=== PATIENT | female | born 1995 | race Caucasian/White ===

== ENCOUNTER 2025-01-24 06:46 | Outpatient (CLI) | payer OTHER, BC, SELFPAY ==
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
--- OUTSIDE RECORDS SUMMARY | 2025-01-24 06:54 | XMS_ITS | Encounter Summary ---
Author Organization [facility] Address [address] [place] [address] Care Team Providers Care Floor Worker Well Service Name Role Phone Diane Barry CHAIR MECHANIC- Unavailable Kaiden Motta MD Primary Care Provider [phone] Sadie Monroe NURSING AGENCY MANAGER Unavailable [phone] Encounter Details Date Type Department Care Team (Late st Contact Info) Description 02/16/2024 New Vision [place] [address] Mariano Freeman MD [address] [place] [address] Visit Follow Up Social History Tobacco Use Types Packs/Day Years Used Date Smoking Tobacco: Never Smokeless Tobacco: Never Alcohol Use Standard Drinks/Week Comments No 0 (1 standard drink = 0.6 oz pur e alcohol) Humiliation, Afraid, Rape, and Kick questionnair e Answer Date Recorded Within the last year, have y ou been afraid of your partner or ex-partner? No 11/27/2022 Within the last year, have y ou been humiliated or emotionally abused in other ways by your partner or ex-partner? No Within the last year, have y ou been kicked, hit, slapped, or otherwise physically hurt by your partner or ex-partner? No 11/27/2022 Within the last year, have y ou been raped or forced to have any kind of sexual activity by your partner or ex-partner? No 11/27/2022 Social Connection and Isolat ion Panel [NHANES] Answer Date Recorded In a typical week, how many times do you talk on the phone with family, friends, or neighbors? More than three times a week 11/27/2022 How often do you get togethe r with friends or relatives? Twice a week 11/27/2022 How often do you attend chur ch or orthodoxy services? More than 4 times per year 11/27/2022 Do you belong to any clubs o r organizations such as anglican groups, unions, fraternal or athletic groups, or school groups? No 11/27/2022 How often do you attend meet ings of the clubs or organizations you belong to? Never 11/27/2022 Are you , , di vorced, , never , or living with a partner? 11/27/2022 AUDIT-C Answer Date Recorded Q1: How often do you have a drink containing alc ohol? Never 11/27/2022 Q2: How many drinks containi ng alcohol do you have on a typical day when you are drinking? Patient declined 11/27/2022 Q3: How often do you have si x or more drinks on one occasion? Never 11/27/2022 Overall Financial Resource Strain (CARDIA) Answe r Date Recorded How hard is it for you to pa y for the very basics like food, housing, medical care, and heating? Not hard at all 11/27/2022 [facility] [place] [facility] Occupat ional Health - Occupational Stress Questionnaire Answer Date Recorded Do you feel stress - tense, restless, nervous, or anxious, or unable to sleep at night because your mind is troubled all the time - these days? Rather much 11/27/2022 Exercise Vital Sign Answer Date Recorde d On average, how many days pe r week do you engage in moderate to strenuous exercise (like a brisk walk)? 4 days 11/27/2022 On average, how many minutes do you engage in exercise at this level? 30 min 11/27/2022 Hunger Vital Sign Answer Date Recorded Within the past 12 months, y ou worried that your food would run out before you got the money to buy more. Never true 11/27/19 23 Within the past 12 months, t he food you bought just didn't last and you didn't have money to get more. Never true 11/27/2022 PRAPARE - Transportation Answer Date Re corded In the past 12 months, has l ack of transportation kept you from medical appointments or from getting medications? No 11/18 In the past 12 months, has l ack of transportation kept you from meetings, work, or from getting things needed for daily living? No 11/27/2022 Housing Stability Vital Sign Answer Fer e Recorded In the last 12 months, was t here a time when you were not able to pay the mortgage or rent on time? No 11/27/2022 In the last 12 months, how many places have you lived? 2 11/27/2022 In the last 12 months, was t here a time when you did not have a steady place to sleep or slept in a fci (including now)? No 11/27/2022 Comments No Sex and Gender Information Value Date Recorded Sex Assigned at Not on file Legal Sex Female 8:21 PM CDT Gender Identity Not on file Sexual Orientation Not on file documented as of this encounter Functional Status * RETIRED Are you deaf or do you have serious difficulty hearing Answer Date of Assessment Author Status No 11/27/2022 1:08 AM ORGANIZATIONAL DEVELOPMENT MANAGER Activ e * RETIRED Are you blind or do you have serious difficulty seeing, even when wearing glasses? Answer Date of Assessment Author Status No 11/27/2022 1:08 AM ORGANIZATIONAL DEVELOPMENT MANAGER Activ e * Do you have serious difficulty walking or climbing stairs? Answer Date of Assessment Author Status No 11/27/2022 1:08 AM ORGANIZATIONAL DEVELOPMENT MANAGER Nat Finnegan R N Active * Do you have difficulty dressing or bathing? Answer Date of Assessment Author Status No 11/27/2022 1:08 AM ORGANIZATIONAL DEVELOPMENT MANAGER Nat Finnegan R N Active * Because of a physical, mental, or emotional condition, do you have difficulty doing errands alone such as visiting a doctor's office or shopping? Answer Date of Assessment Author Status No 11/27/2022 1:08 AM ORGANIZATIONAL DEVELOPMENT MANAGER Nat Finnegan R N Active documented as of this encounter Mental Status * Because of a physical, mental, or emotional condition, do you have serious difficulty concentrating, remembering, or making decisions? Answer Entry Date Author Status No 11/27/2022 1:08 AM ORGANIZATIONAL DEVELOPMENT MANAGER Kain, Nat N, R N Active documented in this encounter Plan of Treatment Not on file documented as of this encounter Visit Diagnoses Not on filedocumented in this encounter Care Teams Floor Worker Well Service Relationship Specialty Start Date End Date Kaiden Motta MD [address] [place] [phone] PCP - General FAMILY PRACTICE 11/28/19 Diane Barry [facility] [place]ana Filling Operator CARDIOVASCULAR DISEASE 02/06/19 Sadie Monroe NP [address] [place] [address] Nurse Practitioner Nurse Practitioner Women's Health 02/06/21 documented as of this encounter
--- OUTSIDE RECORDS SUMMARY | 2025-01-24 06:54 | XMS_ITS | Referral Summary ---
Author Organization [facility] Address [address] [place] [phone] Care Team Providers Care Drop Forge Operator Name Role Phone Sadie Monroe NP Primary Care Provider [phone] Encounters Date Type Department Care Team Description 01/18/2025 Telephone [facility] [address] [place] [address] Kyle Perez MD Home sleep study results 01/16/2025 9:00 AM CDT - 01/16/2025 11:59 PM CDT Hospital Encounter [facility] [address] [place] [address] Snoring Discharge Disposition: Discharge to home or self care 11/23/2024 Telephone [facility] [address] [place] [address] Sadie Garay [place]STR[place] Insurance 11/06/2024 Telephone [facility] [address] [place] [address] Sadie Garay RPSTRENTON In lab sleep study denied by insurance from Last 3 Months Allergies No known active allergies Medications lamoTRIgine (LaMICtal) 100 mg tablet Take 120 mg by mouth daily Active buPROPion (WELLBUTRIN) 100 mg tabletIndication s:Anxiety with Depression Take 100 mg by mouth once Active aspirin 81 mg enteric coated tablet Take 162 mg by mouth daily Active vit 89-[id number]-fayiw-dh a 27mg iron- 800 mcg-250 mg capsule Take by mouth Active Active Problems Problem Noted Date Diagnosed Date Snoring 10/17/2024 Assessment & Plan (10/17/2024 8:21 AM PLANER TAILER): The patient presents with snoring and daytime fatigue and witnessed nocturnal gasping episodes. I have recommended proceeding with a nocturnal polysomnogram with a split night protocol if necessary and no MSLT. She will follow up here in 4 months. Social History Tobacco Use Types Packs/Day Years Used Date Smoking Tobacco: Never Tobacco Cessation:Counseling Given: Not Answered Social Connection and Isolat ion Panel [NHANES] Answer Date Recorded In a typical week, how many times do you talk on the phone with family, friends, or neighbors? More than three times a week 11/15/2022 How often do you get togethe r with friends or relatives? More than three times a week 11/15/2022 Attends Voodoo Services Not on file 11/15 Active Member of Clubs or Organizations Not on f ile 11/15/2022 Attends Club or Organization Meetings Not on ariana e 11/15/2022 Are you , , di vorced, , never , or living with a partner? 11/15/2022 AUDIT-C Answer Date Recorded Q1: How often do you have a drink containing alc ohol? Never 11/15/2022 Average Number of Drinks Not on file 023 Frequency of Binge Drinking Not on file 10/19 Overall Financial Resource Strain (CARDIA) Answe r Date Recorded How hard is it for you to pa y for the very basics like food, housing, medical care, and heating? Somewhat hard 11/15/2022 PHQ-2 Answer Date Recorded PHQ-2 Total Score (If total score is 3 or more points, staff should administer the PHQ-9) 5 11/15/2022 [facility] - Occupational Stress Questionnaire Answer Date Recorded Do you feel stress - tense, restless, nervous, or anxious, or unable to sleep at night because your mind is troubled all the time - these days? Very much 11/15/2022 Exercise Vital Sign Answer Date Recorde d On average, how many days pe r week do you engage in moderate to strenuous exercise (like a brisk walk)? 0 days 11/15/2022 On average, how many minutes do you engage in exercise at this level? 0 min 11/15/2022 Hunger Vital Sign Answer Date Recorded Within the past 12 months, y ou worried that your food would run out before you got the money to buy more. Never true 11/15/19 23 Within the past 12 months, t he food you bought just didn't last and you didn't have money to get more. Never true 11/15/2022 PRAPARE - Transportation Answer Date Re corded In the past 12 months, has l ack of transportation kept you from medical appointments or from getting medications? No 10/19 In the past 12 months, has l ack of transportation kept you from meetings, work, or from getting things needed for daily living? No 11/15/2022 Housing Stability Vital Sign Answer Fer e Recorded In the last 12 months, was t here a time when you were not able to pay the mortgage or rent on time? No 11/15/2022 Number of Places Lived in the Last Year Not on f ile 11/15/2022 In the last 12 months, was t here a time when you did not have a steady place to sleep or slept in a intermediate (including now)? No 11/15/2022 Personal Safety Answer Date Recorded Getting School Help Needed Denies 10/16 Comments Unknown Sex and Gender Information Value Date Recorded Sex Assigned at Not on file Legal Sex Female 11:52 AM CDT Gender Identity Not on file Sexual Orientation Not on file Last Filed Vital Signs Vital Sign Reading Time Taken Comments Blood Pressure 118/70 10/17/2024 7:54 AM PLANER TAILER Pulse 110 10/17/2024 7:54 AM PLANER TAILER Temperature 36.4 C (97.6 F) 10/17/2024 7:54 AM PLANER TAILER Respiratory Rate 16 10/17/2024 7:54 AM PLANER TAILER Oxygen Saturation 98% 10/17/2024 7:54 AM PLANER TAILER Inhaled Oxygen Concentration - - Weight 97.1 kg (214 lb) 10/17/2024 7:54 AM PLANER TAILER Height 162.6 cm (5' 4 ) 10/17/2024 7:54 AM PLANER TAILER Body Mass Index 36.73 10/17/2024 7:54 AM PLANER TAILER Plan of Treatment Not on file Procedures Procedure Name Priority Date/Time Associated Diagnosis Comments PORTABLE/HOME SLEEP STUDY Routine 01/16/2025 9:03 AM CDT Snoring from Last 3 Months Results * Portable/Home Sleep Study (01/16/2025 9:03 AM CDT) us Jerica De La Cruz [facility] ORDERABLES [facility] Result [facility] [address] [place] [address], [facility] from Last 3 Months Insurance [facility] [employer] P[employer] PPO [facility] CHOICE PLUS [facility] Care Teams Drop Forge Operator Relationship Specialty Start Date End Date Sadie Monroe NP [address] [place] [address] [place] [address] PCP - General 04/20/22
--- OUTSIDE RECORDS SUMMARY | 2025-01-24 06:54 | XMS_ITS | Data Portability ---
Author Organization [facility], [address] [facility] ([place]) Address [address] 4th [place] [address] Care Team Providers Care Ship Rigger Apprentice Name Role Phone LADARIUS BARNARD Primary Care Provider Assessment Encounter Date Assessment Date Assessment LastModified by Organization Details LastModified Time 04/25/2024 04/25/2024 HISTORY OF PRESENT ILLNESS This is a 28-year-old female who presents to the clinic secondary to complaints of left-sided hip pain. This started during a half marathon. She noticed she was turning around multiple times looking for her boyfriend as she was running and this may have caused issue. She did not really feel a pop or anything at the time, but had some discomfort into the left hip. She was able to continue and did complete her run. She had seen an outside facility with continue pain into the left hip and a magnetic resonance arthrogram was obtained and will be independently reviewed at today s visit. This occurred in January of this year. She took about a month off from running completely. The pain really has not subsided. She feels pain into the left groin. No change in bowel or bladder. No saddle paresthesias. No previous injury here. PHYSICAL EXAMINATION CONST:-No acute distress. EYES:-No icterus. ENT:-Oral mucosa pink and moist. RESP:-Breathing appears normal. No use of accessory muscles. MSK:-Head: Atraumatic. Normocephalic. There is mildly positive log roll test, left side. There is also some discomfort on MARCE s maneuver. FADIR testing is mildly positive. There are no overlying skin changes, erythema, or ecchymosis. There is no pain over the distribution of the greater trochanter. No radicular component with straight leg raise test. Good strength on plantarflexion at the ankle. Good hip flexor strength. Compression into the distribution of the hip joint stressing the labrum did not reproduce any pain or discomfort. SKIN:-No jaundice. PSYCH:-Stable mood and affect. NEURO:-No speech difficulty. Reviewed pertinent diagnostic tests, lab work, and imaging. These were reviewed with the patient. ASSESSMENT AND PLAN I did independently review the magnetic resonance arthrogram in the room with the patient today. While there are findings consistent with inflammation, there are no findings of stress reaction into the femoral head or neck. There is no labral tear appreciated. Recommendation at this time is oral steroidal anti-inflammatory medication to see if we can clear up some of the inflammation that is appreciated into the left hip with plan on reevaluation in a couple of weeks. I asked her to hold off on activities that may increase her pain, including running, until we see her back. There might be a role for some direct formal therapy and even potential for a fluoroscopically guided hip joint injection, it depends on how she responds overall to this conservative approach. The patient is clear with the plan moving forward. ab [email or web address] Not available 04/25/2024 11:41:46 05/10/2024 05/10/2024 HISTORY OF PRESENT ILLNESS: Return visit for this 28-year-old female who initially presented to the clinic secondary to left-sided hip pain that started during a half marathon. The patient did have some advanced imaging with magnetic resonance. I reviewed those findings in the room today with the patient. There is no labral pathology appreciated. No findings consistent with a stress reaction into the femoral neck or head. There were some findings consistent with synovitis into the hip joint on my independent review. The patient did great on an oral steroidal anti-inflammatory medication and activity modification. She is anxious to get back into running. She runs usually every day of the week; shortest run being about 2 to 2-1/2 miles. PHYSICAL EXAMINATION: CONST:-No acute distress. EYES:-No icterus. ENT:-Oral mucosa pink and moist. RESP:-Breathing appears normal. No use of accessory muscles. MSK:-Head: Atraumatic. Normocephalic. There is a negative log-roll test bilaterally. FADIR test is negative bilaterally. MARCE s test is negative bilaterally. There is no radicular component on straight leg raise test. Good strength on resisted plantar flexion. Good strength on resisted hip flexion and extension. There is no pain over the distribution of the greater trochanter. Good mobility and strength of the hips bilaterally. SKIN:-No jaundice. PSYCH:-Stable mood and affect. NEURO:-No speech difficulty. Reviewed pertinent diagnostic tests, lab work, and imaging. These were reviewed with the patient. ASSESSMENT AND PLAN: Recommendation is easing back into activity; recommend spacing out some runs, some short runs in the beginning to see how she feels and responds. I anticipate good response here. The majority of inflammation is under control secondary to the steroidal medication. I encourage a phone call with any questions or concerns that may arise. She is clear with the transition back into running. She is going to call us with any questions or concerns that may arise. I personally spent a total of 26 minutes on the patient on this date of service including both [id number] and mwm-pbam-[id number]-face time excluding any separately reportable services. Not available 05/11/2024 08:32:52 10/08/2024 10/08/2024 Test(s) ordered and reviewed: UA and urine culture Prescription (s): Cephalexin Diagnosis today is UTI. The patient is given the above medication to take as instructed. They should increased their water intake while symptomatic. They may take pyridium/AZO as needed. They will be notified in 2 days if their abx needs to be switched due to resistance. For any new or worsening symptoms they may return to Urgent Care, otherwise they should f/u with their PCP as needed. Patient verbalized understanding and had no further questions. Wet prep performed here came back A few WBCs and no clue cells. [email or web address] Not available 10/09/2024 14:02:52 Plan of Treatment Reminders Order Date Submit Date Provider Last Modified By Organization Details Last Modified Time Details Appointments None recorded. Lab wet mount, vaginal 2023 [facility], [address] [place] [address], [id number], 14:44:20 urinalysis, complete 2023 [facility], [address] [place] [address], [id number], 15:09:13 Referral None recorded. Procedures None recorded. Surgeries None recorded. Imaging None recorded. Medication Orders cephalexin 500 mg capsule 2023 024 [email or web address] [id number], [address] [place], [address], 14:00:42 prednisone 10 mg tablet 2023 024 [email or web address] [id number], [address], [place], [id number], 12:53:41 Patient TargetsNo targets recorded. Patient InstructionsNo instructions recorded. Reason for Referral None Reported. Results Created Date Observation Date Name Description Value Unit Range Abnormal Flag Note LastModifiedBy Organization Detail LastModifiedTime 10/08/20 24 10/08/2024 wet mount , vagin al wet prep Not Available [facility] [address] [place] [address], [id number], 10/08/2024 14:44:20 10/08/20 24 10/08/2024 wet mount , vagin al yeast NONE SEEN none seen Not Available [facility] [address] [place] [address], [id number], 10/08/2024 14:44:20 10/08/20 24 10/08/2024 wet mount , vagin al WBC FEW none seen abnormal Not Available [facility] [address] [place] [address], [id number], 10/08/2024 14:44:20 10/08/20 24 10/08/2024 wet mount , vagin al clue cells NONE SEEN negati ve abnormal Clue Cell Inter preta tion: Posit leighann Resul t = >20% Clue Cells Seen Negat leighann Resul t = <20% Clue Cells Seen Not Available [facility] [address] [place] [address], [id number], 10/08/2024 14:44:20 10/08/20 24 10/08/2024 wet mount bere trichomonas NONE SEEN none seen Not Available [facility] [address] [place] [address], [id number], 10/08/2024 14:44:20 10/08/20 24 10/08/2024 wet mount bere source VAG Not Available [facility] [address] [place] [address], [id number], 10/08/2024 14:44:20 10/08/20 24 10/08/2024 urina lysis , compl ete manual urinalysis pH value s of 5 or 9 indic ates a value <=5 or >=9. Speci fic gravi ty value of 1.005 indic ates a value of <=1.0 05 Speci fic gravi ty value of 1.030 indic ates a value of >=1.0 30 LOW LEVEL S OF HEMOG LOBIN IN ABSEN CE OF HEMAT URIA MAY NOT BE CLINI AMANDA SIGNI FICAN T. Not Available [facility] [address] [place] [address], [id number], 10/08/2024 15:09:13 10/08/20 24 10/08/2024 urina lysis , compl ete color YELLO Not Available [facility] [address] [place] [address], [id number], 10/08/2024 15:09:13 10/08/20 24 10/08/2024 urina lysis , compl ete appearance SLCLD Not Available [facility] [address] [place] [address], [id number], 10/08/2024 15:09:13 10/08/20 24 10/08/2024 urina lysis , compl ete sp gravity 1.020 1.005- 1.030 Not Available [facility] [address] [place] [address], [id number], 10/08/2024 15:09:13 10/08/20 24 10/08/2024 urina lysis , compl ete pH 6.0 5.0-7. 5 Not Available [facility] [address] [place] [address], [id number], 10/08/2024 15:09:13 10/08/20 24 10/08/2024 urina lysis , compl ete protein NEG negati ve Not Available [facility] [address] [place] [address], [id number], 10/08/2024 15:09:13 10/08/20 24 10/08/2024 urina lysis , compl ete glucose NEG negati ve Not Available [facility] [address] [place] [address], [id number], 10/08/2024 15:09:13 10/08/20 24 10/08/2024 urina lysis , compl ete ketone NEG negati ve Not Available [facility] [address] [place] [address], [id number], 10/08/2024 15:09:13 10/08/20 24 10/08/2024 urina lysis , compl ete bilirub NEG negati ve Not Available [facility] [address] [place] [address], [id number], 10/08/2024 15:09:13 10/08/20 24 10/08/2024 urina lysis , compl ete blood NEG negati ve Not Available [facility] [address] [place] [address], [id number], 10/08/2024 15:09:13 10/08/20 24 10/08/2024 urina lysis , compl ete urobil 0.2 <=1.0 Not Available [facility] [address] [place] [address], [id number], 10/08/2024 15:09:13 10/08/20 24 10/08/2024 urina lysis , compl ete nitrite NEG negati ve Not Available [facility] [address] [place] [address], [id number], 10/08/2024 15:09:13 10/08/20 24 10/08/2024 urina lysis , compl ete leuk 1+ negati ve abnormal Not Available [facility] [address] [place] [address], [id number], 10/08/2024 15:09:13 10/08/20 24 10/08/2024 urina lysis , compl ete WBC 3-5 (0-5)/ hpf Not Available [facility] [address] [place] [address], [id number], 10/08/2024 15:09:13 10/08/20 24 10/08/2024 urina lysis , compl ete RBC 0-2 (0-2)/ hpf Not Available [facility] [address] [place] [address], [id number], 10/08/2024 15:09:13 10/08/20 24 10/08/2024 urina lysis , compl ete epith 3-5 0-10/h pf Not Available [facility] [address] [place] [address], [id number], 10/08/2024 15:09:13 10/08/20 24 10/08/2024 urina lysis , compl ete hyal cast 0-2 (0-2)/ lpf Not Available [facility] [address] [place] [address], [id number], 10/08/2024 15:09:13 10/08/20 24 10/08/2024 urina lysis , compl ete bacteria 2+ none abnormal Not Available [facility] [address] [place] [address], [id number], 10/08/2024 15:09:13 05/03/20 24 04/25/2024 MR, magaly agudelo , hip No observ ation record ed. [email or web address] Not Available 2023 10:18:26 05/03/2004/25/2024 XR, arthr ogram , hip No observ ation record ed. [email or web address] Not Available 2023 10:19:12 Result Notes None recorded. Problems Name Problem SNOMED Code Status Onset Date Resolution Date Notes Provider Name and Address Organization Details Recorded Time Vaginal discharge 659174906 Active [address] [facility] 4 14:05:21 Acute urinary tract infection 116124543 Active 2023 Graciela Tidwell APRN [address] [facility], [place], [address], [facility] 4 15:33:00 Pain of left hip joint 2821283316017 00 Active [address] [facility] 4 11:18:22 Inflammatio n of hip joint 233688073 Active 2023 Victorino Carlton MD [address] , [place], [address], [facility] 4 11:21:22 Effusion of joint of left hip 0743102461694 07 Active [address] [facility] 4 13:52:32 Synovitis of hip 959246168 Active 2023 Victorino Carlton MD [address] [facility], [place], [address], [facility] 4 17:32:55 Problem Notes None recorded. Procedures Surgical History None recorded. Imaging Results Imaging Date Name Status [facility] LastModified Time 04/25/2024 MR, arthrogram , hip completed Information not available 05/03/2024 10:18:26 04/25/2024 XR, arthrogram , hip completed Information not available 05/03/2024 10:19:12 Procedure Notes None recorded. Medical Equipment None Reported. Medications Name Sig Start Date Stop Date Status Note LastModified by Organization Details LastModified Time medroxyproge sterone 10 mg tablet TAKE 1 TABLET BY MOUTH EVERY DAY FOR 10 DAYS active Not Available Not Available No t Available buspirone 5 mg tablet TAKE 1 TABLET BY MOUTH 3 TIMES A DAY NEEDED FOR ANXIETY active Not Available Not Available Not Available prednisone 10 mg tablet Take 4 Tablets for 3 Days, Take 3 Tablets for 3 Days, Take 2 Tablets for 3 Days, Take 1 Tablet for 3 Days then STOP active Not Available Not Available No t Available lamotrigine 200 mg tablet TAKE 1 TABLET DAILY TO STABILIZE MOOD active Not Available Not Available No t Available divalproex 250 mg tablet,delay ed release 1 (ONE) TABLET AT BEDTIME FOR MOOD STABILIZATI ON active Not Available Not Available No t Available trazodone 50 mg tablet TAKE 1 (ONE) TABLET DAILY AT BEDTIME NEEDED FOR SLEEP active Not Available Not Available No t Available clindamycin HCl 150 mg capsule TAKE 1 CAPSULE 3 TIMES DAILY UNTIL GONE active Not Available Not Available N ot Available lamotrigine 25 mg tablet WEEK ONE 1 TAB DAILY, WEEK 2 TAKE 2 TABS DAILY, WEEK 3 TAKE 3 TABS DAILY, WEEK 4 TAKE 4 TABS DAILY active Not Available Not Available No t Available cephalexin 500 mg capsule Take 1 capsule twice a day by oral route. 2023 active Not Available Not Available Not Avai lable ferrous sulfate 325 mg (65 mg iron) tablet TAKE 1 TABLET BY MOUTH EVERY DAY active Not Available Not Available No t Available folic acid 1 mg tablet TAKE 4 TABLETS BY MOUTH DAILY, TAKE WITH LAMOTRIGINE active Not Available Not Available Not Available albuterol sulfate HFA 90 mcg/actuatio n aerosol inhaler INHALE 1 PUFF BY MOUTH TWICE A DAY (1 INHALER = 100 DAYS) active Not Available Not Available No t Available norethindron e (contracepti ve) 0.35 mg tablet TAKE 1 TABLET BY MOUTH EVERY DAY active Not Available Not Available No t Available lamotrigine 100 mg tablet TAKE 1 1/2 (ONE AND A HALF) TABLET DAILY FOR MOOD active Not Available Not Available No t Available aripiprazole 15 mg tablet 1 (ONE) TABLET DAILY TO HELP STABILZE MOOD active Not Available Not Available No t Available aripiprazole 20 mg tablet 1 (ONE) TABLET DAILY TO HELP STABILZE MOOD active Not Available Not Available No t Available aripiprazole 30 mg tablet TAKE 1 (ONE) TABLET DAILY TO HELP STABILZE MOOD active Not Available Not Available No t Available bupropion HCl XL 300 mg 24 hr tablet, extended release 1 TABLET EVERY DAY FOR DEPRESSION active Not Available Not Available N ot Available bupropion HCl XL 150 mg 24 hr tablet, extended release 1 (ONE) TABLET DAILY FOR DEPRESSION, MAX DAILY DOSE: 450 MILLIGRAM active Not Available Not Available No t Available Vitals Date Recorded Body weight Heart rate Oxygen saturation Oxygen saturation in Arterial blood by Pulse oximetry Provider Name and Address Organization Details Last Updated DateTime 04/25/2024 90944.51 g 78 /min 99 % 99 % Shilpadixon Henrietta [facility] 04/25/2024 10:45:32 Date Recorded Body height Body mass index (BMI) Body weight Body temperature Heart rate Oxygen saturation Oxygen saturation in Arterial blood by Pulse oximetry Systolic blood pressure Diastolic blood pressure Provider Name and Address Organization Details Last Updated DateTime 4 167.64 cm 21.3 kg/m2 37515.4 7 g 99 [degF] 80 /min 99 % 99 % 122 mm[Hg] 60 mm[Hg] Pollo Upton [facility] 4 14:54:11 Social History None recorded. Functional Status None recorded. Mental Status None recorded. Family History Nothing Reported. Medical History No medical history recorded. Gynecological HistoryNo gynecological history recorded. Obstetrics History GPAL:G 0 P 0 0 0 0 Past Encounters Encounter ID Performer Location Encounter Start Date Encounter Closed Date Diagnosis/Indication Diagnosis SNOMED-CT Code Diagnosis ICD10 Code Diagnosis Note [id number] Victorino Carlton MD [address] [facility] ([place]) [address] [place] [address],[address] [place] [phone] 04/25/2024 10:27:53 04/25/2024 18:56:11 Pain of left hip joint 7243944773 88266 M25.552 Effusion o f joint of left hip 8978584691 32761 M25.452 Y93.02 [id number] Victorino Carlton MD [address] [facility] ([place]) [address] [place] [address],[address] [place] [phone] 05/10/2024 15:16:29 05/10/2024 18:42:32 Synovitis of hip 351962605 M65.852 [id number] Graciela Tidwell APRN [facility] [address] [place] [phone] 10/08/2024 13:50:14 10/08/2024 15:36:59 Vaginal discharge 781227855 N89.8 Acute urin joanie tract infection 696235810 N39.0 Health Concerns Section Related Observation LastModified by Organization Detai ls LastModified Time None Recorded Concern Status LastModified by Organization Details LastModified Time None Recorded Advance Directives Directive None Recorded Payers Encounter Date Sequence Insurance Name Policy Number Policy Humphrey Covered Member ID Humphrey Member ID Guarantor Name 04/25/2024 1 [facility] [id number] Iris Herbert [id number] Iris Jiang 04/25/2024 2 [facility] [place] - DOS PRIOR TO 2024 (PPO) Iris Herbert [id number] Iris Jiang 05/10/2024 1 [facility] [id number] Iris Herbert [id number] Iris Jiang 05/10/2024 2 [facility] [place] - DOS PRIOR TO 2024 (PPO) Iris Herbert [id number] Iris Jiang 10/08/2024 1 [facility] [id number] Iris Herbert [id number] Iris Jiang 10/08/2024 2 [employer] [id number] Xander Jiang [id number] Iris Jiang Notes Date Note Type Note Provider Name and Address Organization Details Recorded Time 10/08/2024 text/html Patient is a pleasant 29-year-old female that comes in complaining of vaginal irritation onset this morning. Patient denies vaginal discharge. Graciela Tidwell APRN [address] [place] [address], [phone], [facility] 10/09/2024 14:03:26 OBGyn Episode No OBEpisode recorded.
--- OUTSIDE RECORDS SUMMARY | 2025-01-24 06:54 | XMS_ITS | Clinical Summary ---
Author Organization [facility] Address [address] [place] [address] Care Team Providers Care Spout Liner Name Role Phone Diane Barry HOME HOSPICE RN-BC Unavailable Kaiden Motta MD Primary Care Provider [phone] Sadie Monroe RADIO STATION AUDIO ENGINEER Unavailable [phone] Allergies Active Allergy Reactions Criticality Noted Date Comments Divalproex Sodium Blurred vision,Dizziness,Hallu cinations,Other (see comment) 07/13/2023 Valproic Acid Other (see comment) 09/30/2023 Blurred vision, dizziness, psychosis Medications Multiple Vitamin (MULTI-DAY VITAMINS OR) Active albuterol sulfate HFA 108 (90 Base) MCG/ACT inhaler Inhale 1 puff into the lungs 2 (two) times a day. Active ARIPiprazole (ABILIFY) 30 MG Tab tablet Take 1 tablet (30 mg total) by mouth daily. 12/22/2023 Active buPROPion XL (WELLBUTRIN XL) 300 MG 24 hr tablet Take 1 tablet (300 mg total) by mouth every morning. 09/25/2023 Active lamoTRIgine ER (LAMICTAL XR) 200 MG 24 hr tablet Take 1 tablet (200 mg total) by mouth daily. Active Active Problems Problem Noted Date Diagnosed Date ([facility]) 11/27/2022 Moderate asthma without complication ([facility]) 0 02/06/2019 Stress and adjustment reaction 02/06/2019 Weight disorder 02/06/2019 Family History Medical History Relation Comments Asthma Brother Diabetes Father Stroke Maternal Grandfather Asthma Mother Other Mother Relation Status Comments Brother Father Alive Maternal Grandfather Mother Alive Social History Tobacco Use Types Packs/Day Years Used Date Smoking Tobacco: Never Smokeless Tobacco: Never Tobacco Cessation:Counseling Given: Not Answered Alcohol Use Standard Drinks/Week Comments No 0 [...] week 11/27/2022 How often do you attend [facility] or anglican services? More than 4 times per year 11/27/2022 Do you belong to any clubs o r organizations such as shinto groups, unions, fraternal or athletic groups, or [...] and heating? Not hard at all 11/27/2022 [facility] [place] of Occupat ional Health - Occupational Stress [...] place to sleep or slept in a senior care (including now)? No 11/27/2022 Comments No Sex and Gender Information Value Date Recorded Sex Assigned at Not on file Legal Sex Female 8:21 PM CDT Gender Identity Not on file Sexual Orientation Not on file Last Filed Vital Signs Vital Sign Reading Time Taken Comments Blood Pressure 112/68 11/30/2022 9:00 AM ENAMEL SPRAYER Pulse 86 11/30/2022 9:00 AM ENAMEL SPRAYER Temperature 36.9 C (98.4 F) 11/30/2022 9:00 AM ENAMEL SPRAYER Respiratory Rate 18 11/30/2022 9:00 AM ENAMEL SPRAYER Oxygen Saturation 97% 11/30/2022 9:00 AM ENAMEL SPRAYER Inhaled Oxygen Concentration - - Weight 56.7 kg (125 lb) 03/10/2024 11:24 AM CDT Height 167.6 cm (5' 6 ) 03/10/2024 11:24 AM CDT Body Mass Index 20.18 03/10/2024 11:24 AM CDT Plan of Treatment Health Maintenance Due Date Last Done Comments Cervical Cancer Screening Pa p Smear (Age 30 to 64) Every 3 Years 1994 Annual Physical 1997 Pneumococcal Vaccine: Pediatrics (0 to 5 Years) and At-Risk Patients (6 to 64 Years) (1 of 2 - PCV) 2000 Hepatitis B Vaccines (1 of 3 - 19+ 3-dose series) 2013 COVID-19 Vaccine (2023-2 5 season) 2024 12/07/2020, 11/09/2020 Cervical Cancer Screening Pa p with HPV Testing (Age 30 to 64) Every 5 Years 2024 Cervical Cancer Screening wi th HPV 2024 DTaP, Tdap and Td Vaccines ( 2 - Td or Tdap) 09/09/2032 09/09/2022 Hepatitis C Completed 07/16/2022 HPV Vaccines Aged Out No longer eligi ble based on patient's age to complete this topic Meningococcal B Vaccine Aged Out No l onger eligible based on patient's age to complete this topic Meningococcal Vaccine Aged Out No pau katie eligible based on patient's age to complete this topic RSV Immunizations Under 20 Months Aged Out No longer eligible b ased on patient's age to complete this topic Procedures Procedure Name Priority Date/Time Associated Diagnosis Comments HEPATITIS C ANTIBODY Routine 07/16/2022 from Last 3 Months or Most Recently Relevant to Health Maintenance Results * HEPATITIS C ANTIBODY (07/16/2022) HEPATITIS C AB non-reacti ve Comment:actually drawn on us Default History Genericprovider LABORATORY Final Result from Last 3 Months or Most Recently Relevant to Health Maintenance Insurance [facility] Advance Directives * Full Code (Latest Code Status on File) Date Activated Date Inactivated Comments 11/27/2022 12:16 AM 11/28/2022 1:29 PM * Full Code Date Activated Date Inactivated Comments 11/20/2022 4:22 PM 11/20/2022 7:11 PM * Full Code Date Activated Date Inactivated Comments 11/12/2022 5:16 PM 11/12/2022 8:45 PM * Full Code Date Activated Date Inactivated Comments 11/05/2022 10:01 AM 11/05/2022 12:13 PM * Full Code Date Activated Date Inactivated Comments 10/08/2022 12:44 PM 10/08/2022 3:27 PM Care Teams Spout Liner Relationship Specialty Start Date End Date Kaiden [place] [address] PCP - General FAMILY PRACTICE 11/28/19 Diane Barry, HOME HOSPICE RN- [facility] CARDIOVASCULAR DISEASE 02/06/19 [place] [address] Nurse Practitioner Nurse Practitioner Women's Health 02/06/21
--- OUTSIDE RECORDS SUMMARY | 2025-01-24 06:54 | XMS_ITS | Patient Health Record ---
Author Organization [facility] Address [address] [facility] [address] [place] [address] Care Team Providers Care Hydro Mechanic Name Role Phone Kaiden Motta MD Primary Care Provider Lalit Nava Unavailable [phone] Migration, Provider Unavailable Unavailable Allergies Allergen (clinical drug ingredient) Drug/Non Drug Allergy documented on EMR Reaction Allergy Type Onset Date Status valproate Depakote Unknown Drug Allergy Active Results Component Value Reference Range Notes UDT Reviewed date:12/19/2024 03:49:33 PM Interpretation: Performing Lab: Notes/Report: THC n 0 - 50 ng/ml Cocaine n 0 - 300 ng/ml Amphetamine n 0 - 1000 ng/ml Buprenorphine (BUP) n 0 - 10 ng/ml Secobarbital (Bar) n 0 - 300 ng/ml Oxazepam (BZO) n 0 - 300 ng/ml 2-plfeolajwb-7,6-lydjtghs-0, 3-diphenylpyrrolidine (EDDP) n 0 - 300 ng/ml Methamphetamine (MET) n 0 - 1000 ng/ml Methylenedioxymethamphetamine (MDMA) n 0 - 500 ng/ml Morphine (MOP 300/[id number]) n 0 - 300 ng/ml Methadone (MTD) n 0 - 300 ng/ml Phencyclidine (PCP) n 0 - 25 ng/ml Nortriptyline (TCA) n 0 - 1000 ng/ml Oxycodone n 0 - 300 ng/ml x n 0 - 300 ng/ml Test Reviewed date:12/19/2024 03:49:27 PM Interpretation: Performing Lab: Notes/Report: Test urine 0 - 0 Reason For Referral No Information Medications Medication SIG (Take, Route, Frequency, Duration) Notes Start Date End Date Status NovoLIN N 100 UNIT/ML Subcutaneous Not-Taking Norethindrone 0.35 MG Oral Not-Taking lamoTRIgine 100 MG 1 tablet Oral Once a day for 90 days Active INSULIN SYRINGE U-100 WITH NEEDLE 0.3 ML 30 *Reorder from [employer] for eRx and Interaction Alerts* Not-Taking CONTOUR NEXT GEN METER *Reorder from [employer] for eRx and Interaction Alerts* Not-Taking Folic Acid 1 MG Oral Acti ve busPIRone HCl 5 MG Oral N ot-Taking Divalproex Sodium 250 MG Oral Not-Taking lamoTRIgine 200 MG Oral N ot-Taking SSD 1 % External Active ARIPiprazole 15 MG Oral N ot-Taking ProAir HFA 108 (90 Base) MCG/ACT Inhalation Active medroxyPROGESTERone Acetate 10 MG Oral Not-Taking buPROPion HCl ER (XL) 300 MG Oral Not-Taking Social History Tobacco Use: Social History Observation Description Date Details (start date - stop date) Never Smoker NA - NA Sex Assigned At : Social History Observation Description Sex Assigned At Female Tobacco Control (Standard) Question Answer Notes Tobacco use: Nonsmoker AUDIT-C (Standard) Question Answer Notes Did you have a drink contain ing alcohol in the past year? Yes How often did you have six o r more drinks on one occasion in the past year? Never (0 point) How many drinks did you have on a typical day when you were drinking in the past year? 1 or 2 drinks (0 point) How often did you have a dri nk containing alcohol in the past year? Monthly or less (1 point) Problems Problem Type SNOMED Code ICD Code Onset Dates Problem Status W/U Status Risk Notes Problem Generalized anxiety disorder (42369729) Anxiety, generalized (F41.1) Active confirmed Vital Signs Heart Rate 109 /min 12/18/2024 Height-cm 167.64 cm 12/18/2024 Blood pressure diastolic 64 mm Hg 12/18/2024 Weight-kg 63.5 kg 12/18/2024 Height 66 in 12/18/2024 Blood pressure systolic 99 mm Hg 12/18/2024 Weight 140 lbs 12/18/2024 BMI 22.59 kg/m2 12/18/2024 Encounters Encounter Location Date Provider Diagnosis [facility] [employer] [facility] [address] [facility] [address] [place] [address] 12/18/2024 Lalit Lopez Anxiety, generalized F41.1 ; (HHS/HCC) Z34.90 and Major depressive disorder F32.9 [facility] [employer] [facility] [address] [facility] [address] [place] [address] 03/04/2024 Provider Migration [facility] [employer] [facility] [address] [facility] [address] [place] [address] 03/05/2024 Provider Migration Assessments Encounter Date Diagnosis (ICD Code) Assessment Notes Treatment Notes Treatment Clinical Notes Section Notes 12/18/2024 Anxiety, generalized (ICD-10 - F41.1) 12/18/2024 (HHS/HCC) (ICD-10 - Z34.90) 21 weeks 12/18/2024 Major depressive disorder (ICD-10 - F32.9) 12/18/2024 Other https://www.postp artum.net/get-hel p/doz-reehil-sjve ort-meetings/#adh d Multiple support groups- and international 1. Major Depressive Disorder with Psychotic Features: - Continue lamotrigine 100 mg daily Plan: - Monitor for any worsening of depression or psychosis - Consider reintroducing aripiprazole (Abilify) if needed and if patient agrees - Reevaluate lamotrigine dosage in a month or sooner if symptoms worsen, as may require dose adjustments 2. Anxiety related to and contamination fears: Plan: - Encourage patient to continue therapy with her current therapist - Provide patient with information on [employer] for additional resources and support groups 3. History of Bipolar Disorder (uncertain): Plan: - Continue monitoring patient's mood and symptoms - Reassess the diagnosis as more information becomes available and symptoms evolve 4. Grief and adjustment issues related to the loss of the first : Plan: - Encourage patient to continue therapy to address grief and adjustment issues - Monitor for any worsening of depressive symptoms related to grief 5. (21 weeks): Plan: - Continue care with the patient's primary care provider - Encourage patient to maintain a healthy diet and take vitamins as tolerated - Monitor patient's mental health closely during and period 6. History of Gestational Diabetes: Plan: - Encourage patient to follow up with her primary care provider for monitoring and management during the current Follow-up: - Schedule a follow-up appointment in one month to reassess the patient's mental health and medication management - Instruct the patient to contact the clinic if there is any worsening of symptoms or concerns before the scheduled follow-up appointment Plan Of Treatment No Information Insurance Providers Payer Name Payer Address Payer Phone Subscriber Number Group Number Insured Name Patient Relationship to Insured Coverage Start Date Coverage End Date [employer] [address] [place] [address] [id number] DeidreJOSE RAFAELQUITA Self - patient is the insured [facility] [address] [place] [address] [id number] JOSE RAFAEL JiangISTEN Self - patient is the insured Medical (General) History Medical History History ICD Code Past Psychiatric History: An xiety Disorder,Major Depressive Episode,Bipolar Disorder abdominal aortic aneurysm: No atrial fibrillation: No chronic fatigue syndrome: No essential tremor: No hyperlipidemia: No hypertension: No Parkinson's disease: No restless leg syndrome: No stroke: No subdural hematoma: No type 1 diabetes mellitus: No type 2 diabetes mellitus: No vitamin B12 deficiency: No vitamin D deficiency: No Surgical History Surgery Date(Month/Year) D & C 2019
--- OUTSIDE RECORDS SUMMARY | 2025-01-24 06:54 | XMS_ITS | Clinical Summary ---
Author Organization [facility] Address [address] [place] [address] Care Team Providers Care Legislative Analyst Name Role Phone Sadie Monroe NP Primary Care Provider [phone] Allergies No known active allergies Medications lamoTRIgine (LaMICtal) 100 mg tablet Take 120 mg by mouth daily Active buPROPion (WELLBUTRIN) 100 mg tabletIndication s:Anxiety with Depression Take 100 mg by mouth once Active aspirin 81 mg enteric coated tablet Take 162 mg by mouth daily Active vit 97-uxyf-hsmsq-dh a 27mg iron- 800 mcg-250 mg capsule Take by mouth Active Active Problems Problem Noted Date Diagnosed Date Snoring 10/17/2024 Assessment & Plan (10/17/2024 8:21 AM SWIMMING POOL SERVICEPERSON): The patient presents with snoring and daytime fatigue and witnessed nocturnal gasping episodes. I have recommended proceeding with a nocturnal polysomnogram with a split night protocol if necessary and no MSLT. She will follow up here in 4 months. Encounters Date Type Department Care Team Description 01/18/2025 Telephone [facility] [address] [place] [address] Kyle Perez MD Home sleep study results 01/16/2025 9:00 AM CDT - 01/16/2025 11:59 PM CDT Hospital Encounter [facility] [address] [place] [address] Snoring Discharge Disposition: Discharge to home or self care 11/23/2024 [facility] [address] [place] [address] Sadie Garay RPSGT Insurance 11/06/2024 Telephone [facility] [address] [place] [address] Sadie Garay RPSGT In lab sleep study denied by insurance from Last 3 Months Social History Tobacco Use Types Packs/Day Years [...] than three times a week 11/15/2022 Attends Zoroastrianism Services Not on file 11/15 Active Member [...] staff should administer the PHQ-9) 5 11/15/2022 [facility] [place] of Occupat ional Health - Occupational Stress [...] place to sleep or slept in a chcf (including now)? No 11/15/2022 Personal Safety Answer Date Recorded Getting School Help Needed Denies 10/16 Comments Unknown Sex and Gender Information Value Date Recorded Sex Assigned at Not on file Legal Sex Female 11:52 AM CDT Gender Identity Not on file Sexual Orientation Not on file Obstetrics History Para Term AB IAB SAB Ectopic Multiple Livin g Live Births 2 1 1 Date Outcome GA Total Labor Labor/2nd/3rd Weight Sex Type Anes PTL Nubia A1 A5 Name Clin 05/2020 SAB 8w0d Last Filed Vital Signs Vital Sign Reading Time Taken Comments Blood Pressure 118/70 10/17/2024 7:54 AM SWIMMING POOL SERVICEPERSON Pulse 110 10/17/2024 7:54 AM SWIMMING POOL SERVICEPERSON Temperature 36.4 C (97.6 F) 10/17/2024 7:54 AM SWIMMING POOL SERVICEPERSON Respiratory Rate 16 10/17/2024 7:54 AM SWIMMING POOL SERVICEPERSON Oxygen Saturation 98% 10/17/2024 7:54 AM SWIMMING POOL SERVICEPERSON Inhaled Oxygen Concentration - - Weight 97.1 kg (214 lb) 10/17/2024 7:54 AM SWIMMING POOL SERVICEPERSON Height 162.6 cm (5' 4 ) 10/17/2024 7:54 AM SWIMMING POOL SERVICEPERSON Body Mass Index 36.73 10/17/2024 7:54 AM SWIMMING POOL SERVICEPERSON Plan of Treatment Health Maintenance Due Date Last Done Comments Cervical Cancer Screening 1994 Hepatitis C Screening 1994 Varicella Vaccines (1 of 2 - 13+ 2-dose series) 2007 Hepatitis B Screening 2012 Regular Well Visit/Exam 18-64 2012 Pneumococcal vaccine <65 (1 of 2 - PCV) 2013 Depression Screening 11/15/2023 11/15/2022, 11/15/2022 Covid-19 Vaccine ( - 2023-2 5 season) 2024 10/30/2021, 12/07/2020, 11/09/2020 Influenza Vaccine (Season Ended) 2025 08/05/2022 DTaP/Tdap/Td Vaccine (2 - Td or Tdap) 09/09/2032 09/09/2022 HPV Vaccines Aged Out No longer eligi ble based on patient's age to complete this topic Procedures Procedure Name Priority Date/Time Associated Diagnosis Comments PORTABLE/HOME SLEEP STUDY Routine 01/16/2025 9:03 AM CDT Snoring from Last 3 Months Results * Portable/Home Sleep Study (01/16/2025 9:03 AM CDT) Jerica De La Cruz MARKETING ANALYST SLEEP [facility] ORDERABLES Final Result [facility] [address] [place] [id number], [facility] from Last 3 Months Insurance [employer] PPO [employer] PPO [facility] [place] [facility] CHOICE PLUS [facility] CLAIMS Care Teams Legislative Analyst Relationship Specialty Start Date End Date Sadie Monroe NP [facility] [place] [address] PCP - General 04/20/22
[2025-01-24 08:20] LABS: Hemoglobin 10.5 g/dL (12.0-15.0); Mean Corpuscular HGB Conc 31.8 g/dl (32-36); Mean Corpuscular Hemoglobin 27.4 pg (26-34); Mean Corpuscular Volume 86.2 fl (80-100); Mean Platelet Volume 8.7 fl (7.4-10.4); Platelet Count Result 222 k/mm3 (150-375); Red Blood Count 3.83 M/mm3 (4.2-5.4); Red Cell Distribution Width 12.8 % (11.5-14.5); White Blood Count 9.4 K/mm3 (4.5-10.0)
[2025-01-24 08:37] LABS: Glucose 1 Hour PP 50gm Dose 113 mg/dL
[2025-01-24 09:16] LABS: HIV 1/2 Ab P24 Ag Result Negative (Negative)
[2025-01-24 09:42] LABS: Syphilis IgG/IgM Antibody Negative (Negative)
== END 2025-01-24 06:47 | disposition home or self-care (01) ==
PROVIDERS: PCP Family Medicine; Visit Provider Student in an Organized Health Care Education/Training Program
DX: O23.40 Unspecified infection of urinary tract in pregnancy, unspecified trimester (principal); N39.0 Urinary tract infection, site not specified; O09.299 Supervision of pregnancy with other poor reproductive or obstetric history, unspecified trimester; Z86.32 Personal history of gestational diabetes
CPT/HCPCS: 36415; 82947; 85027; 86593; 86703; 87086; G0432

== ENCOUNTER 2025-02-19 06:55 | Outpatient (CLI) | payer BC, OTHER, SELFPAY ==
--- OUTSIDE RECORDS SUMMARY | 2025-02-19 06:57 | XMS_ITS | Patient Health Record ---
Author Organization [facility] Address [address] [facility] [address] [place] [address] Care Team Providers Care Manager Party Name Role Phone Kaiden Motta MD Primary Care Provider Lalit Nava Unavailable [phone] Migration, Provider Unavailable Unavailable Allergies Allergen (clinical drug ingredient) Drug/Non Drug Allergy documented on EMR Reaction Allergy Type Onset Date Status valproate Depakote Unknown Drug Allergy Active Results Component Value Reference Range Notes Test Reviewed date:12/19/2024 03:49:27 PM Interpretation: Performing Lab: Notes/Report: Test urine 0 - 0 UDT Reviewed date:12/19/2024 03:49:33 PM Interpretation: Performing Lab: Notes/Report: THC n 0 - 50 ng/ml Cocaine n 0 - 300 ng/ml Amphetamine n 0 - 1000 ng/ml Buprenorphine (BUP) n 0 - 10 ng/ml Secobarbital (Bar) n 0 - 300 ng/ml Oxazepam (BZO) n 0 - 300 ng/ml 9-elwyseyotl-6,0-aolljirf-1, 3-diphenylpyrrolidine (EDDP) n 0 - 300 ng/ml Methamphetamine (MET) n 0 - 1000 ng/ml Methylenedioxymethamphetamine (MDMA) n 0 - 500 ng/ml Morphine (MOP 300/[id number]) n 0 - 300 ng/ml Methadone (MTD) n 0 - 300 ng/ml Phencyclidine (PCP) n 0 - 25 ng/ml Nortriptyline (TCA) n 0 - 1000 ng/ml Oxycodone n 0 - 300 ng/ml x n 0 - 300 ng/ml Reason For Referral No Information Medications Medication SIG (Take, Route, Frequency, Duration) Notes Start Date End Date Status NovoLIN N 100 UNIT/ML Subcutaneous Not-Taking Norethindrone 0.35 MG Oral Not-Taking lamoTRIgine 100 MG 1 tablet Oral Once a day for 90 days Active INSULIN SYRINGE U-100 WITH NEEDLE 0.3 ML 30 *Reorder from [employer] for eRx and Interaction Alerts* Not-Taking CONTOUR NEXT GEN METER *Reorder from [employer] for eRx and Interaction Alerts* Not-Taking Folic [...] Problem Status W/U Status Risk Notes Problem Anxiety, generalized (F41.1) Active confirmed Vital Signs Heart Rate 109 /min 12/18/2024 Height-cm 167.64 cm 12/18/2024 Blood pressure diastolic 64 mm Hg 12/18/2024 Weight-kg 63.5 kg 12/18/2024 Height 66 in 12/18/2024 Blood pressure systolic 99 mm Hg 12/18/2024 Weight 140 lbs 12/18/2024 BMI 22.59 kg/m2 12/18/2024 Encounters Encounter Location Date Provider Diagnosis [facility] [employer] [facility] [address] [place] [address] 12/18/2024 Lalit Lopez Anxiety, generalized F41.1 ; (HHS/HCC) Z34.90 and Major depressive disorder F32.9 [facility] [employer] [facility] [address] [place] [address] 03/04/2024 Provider Migration [facility] [employer] [facility] [address] [place] [address] 03/05/2024 Provider Migration Assessments Encounter Date Diagnosis (ICD Code) Assessment Notes Treatment Notes Treatment Clinical Notes Section Notes 12/18/2024 Anxiety, generalized (ICD-10 - F41.1) 12/18/2024 (HHS/HCC) (ICD-10 - Z34.90) 21 weeks 12/18/2024 Major depressive disorder (ICD-10 - F32.9) 12/18/2024 Other https://www.postp artum.net/get-hel p/btr-qnujrs-yjim ort-meetings/#adh d Multiple support groups- and international [...] Insured Coverage Start Date Coverage End Date [employer] [address] [place] [address] [id number] DeidreJOSE RAFAEL gordonISTEN Self - patient is the insured [facility] [address] [place] [address] [id number] JOSE RAFAEL JiangISTEN Self - patient is [...]
--- OUTSIDE RECORDS SUMMARY | 2025-02-19 06:57 | XMS_ITS | Encounter Summary ---
Author Organization [facility] Address [address] [place] [address] Care Team Providers Care Data Processing Clerk Name Role Phone Diane Barry TUGBOAT OPERATOR- Unavailable Kaiden Motta MD Primary Care Provider [phone] Sadie Monroe TRANSACTION ADVISORY SERVICES MANAGER Unavailable [phone] Encounter Details Date Type Department Care Team (Late st Contact Info) Description 02/16/2024 [employer] Message [place] [address] Mariano Freeman MD [address] [place] [address] Visit Follow Up Social History Tobacco Use [...] often do you attend chur ch or lutheran services? More than 4 times per year 11/27/2022 Do you belong to any clubs o r organizations such as jew groups, unions, fraternal or athletic groups, or [...] and heating? Not hard at all 11/27/2022 [facility] of Occupat ional Health - Occupational Stress [...] place to sleep or slept in a prison (including now)? No 11/27/2022 Comments No Sex [...] Assessment Author Status No 11/27/2022 1:08 AM RECONCILIATION MANAGER Activ e * RETIRED Are you blind or do you have serious difficulty seeing, even when wearing glasses? Answer Date of Assessment Author Status No 11/27/2022 1:08 AM RECONCILIATION MANAGER Activ e * Do you have serious difficulty walking or climbing stairs? Answer Date of Assessment Author Status No 11/27/2022 1:08 AM RECONCILIATION MANAGER Nat Finnegan R N Active * Do you have difficulty dressing or bathing? Answer Date of Assessment Author Status No 11/27/2022 1:08 AM RECONCILIATION MANAGER Nat Finnegan R N Active * Because of a physical, mental, or emotional condition, do you have difficulty doing errands alone such as visiting a doctor's office or shopping? Answer Date of Assessment Author Status No 11/27/2022 1:08 AM RECONCILIATION MANAGER Nat Finnegan R N Active documented as of this encounter Mental Status * Because of a physical, mental, or emotional condition, do you have serious difficulty concentrating, remembering, or making decisions? Answer Entry Date Author Status No 11/27/2022 1:08 AM RECONCILIATION MANAGER Kain, Nat N, R N Active documented in this encounter Plan of Treatment Not on file documented as of this encounter Visit Diagnoses Not on filedocumented in this encounter Care Teams Data Processing Clerk Relationship Specialty Start Date End Date Kaiden Motta MD [address] [place] [address] PCP - General FAMILY PRACTICE 11/28/19 Diane Barry [facility] [place] Sales Performance Manager CARDIOVASCULAR DISEASE 02/06/19 Sadie Monroe NP [address] [place] [address] Nurse Practitioner Nurse Practitioner Women's Health 02/06/21 documented as of this encounter
--- OUTSIDE RECORDS SUMMARY | 2025-02-19 06:57 | XMS_ITS | Encounter Summary ---
Author Organization [facility] Address [facility] [place] [address] Care Team Providers Care Strike Warfare/Missile Systems Officer Name Role Phone Diane Barry CHOKER SETTER- Unavailable Kaiden Motta MD Primary Care Provider [phone] Sadie Monroe METAL BENDING MACHINE OPERATOR Unavailable [phone] Reason for Visit * Reason Comments Fall Encounter Details Date Type Department Care Team (Latest Contact Info) Description 02/17/2025 10:22 PM CDT - 02/17/2025 11:38 PM T Hospital Encounter [facility] ED Obstetrics [address] [place] [address] Leyda Hernandez MD [address] [place] [address] [id number] Zara Boyle MD [address] [place] [address] Fall Discharge Disposition: Home or Self Care (Routine Discharge) Social History Tobacco Use Types Packs/Day Years [...] 11/27/2022 How often do you attend chur or church services? More than 4 times per year 11/27/2022 Do you belong to any clubs o r organizations such as christian groups, unions, fraE-Buy or athletic groups, or school groups? No [...] and heating? Not hard at all 11/27/2022 [facility] Occupat ional Health - Occupational Stress [...] place to sleep or slept in a mcc (including now)? No 11/27/2022 Estimated Date of Delivery Comme nts Yes 04/25/2025 Based on Other B asis Sex and Gender Information Value Date Recorded Sex Assigned at Not on file Legal Sex Female 8:21 PM CDT Gender Identity Not on file Sexual Orientation Not on file documented as of this encounter Last Filed Vital Signs Vital Sign Reading Time Taken Comments Blood Pressure 94/50 02/17/2025 10:53 PM CDT Pulse 78 02/17/2025 10:53 PM CDT Temperature 36.8 C (98.2 F) 02/17/2025 10:54 PM CDT Respiratory Rate 17 02/17/2025 10:54 PM CDT Oxygen Saturation - - Inhaled Oxygen Concentration - - Weight 69.9 kg (154 lb) 02/17/2025 10:23 PM CDT Height 167.6 cm (5' 6 ) 02/17/2025 10:23 PM CDT Body Mass Index 24.86 02/17/2025 10:23 PM CDT documented in this encounter Functional Status * RETIRED Are you deaf or do you have serious difficulty hearing Answer Date of Assessment Author Status No 11/27/2022 1:08 AM CHIEF KNOWLEDGE OFFICER Activ e * RETIRED Are you blind or do you have serious difficulty seeing, even when wearing glasses? Answer Date of Assessment Author Status No 11/27/2022 1:08 AM CHIEF KNOWLEDGE OFFICER Activ e * Do you have serious difficulty walking or climbing stairs? Answer Date of Assessment Author Status No 11/27/2022 1:08 AM Nat Bales R N Active * Do you have difficulty dressing or bathing? Answer Date of Assessment Author Status No 11/27/2022 1:08 AM Nat Bales R N Active * Because of a physical, mental, or emotional condition, do you have difficulty doing errands alone such as visiting a doctor's office or shopping? Answer Date of Assessment Author Status No 11/27/2022 1:08 AM Nat Bales R N Active * Calculated C-SSRS Risk Score (Lifetime/Recent) Answer Date of Assessment Author Status No Risk Indicated 02/17/2025 10:51 PM Andressa Coon RN Active * [place] Suicide Severity Rating Scale (Screener/Recent Self-Report) Question Answer Date of Assessment Author Status 1. Wish to be (Past 1 Month) No 02/17/2025 10:51 PM Shandra Coon RN Marco tivito 2. Non-Specific Active Suicidal Thoughts (Past 1 Month) No 02/17/2025 10:51 PM Shandra Coon, RN Marco mims 6. Suicidal Behavior (Lifetime) No 02/17/2025 10:51 PM Shandra Coon, RN Marco mims documented as of this encounter Mental Status * Because of a physical, mental, or emotional condition, do you have serious difficulty concentrating, remembering, or making decisions? Answer Entry Date Author Status No 11/27/2022 1:08 AM Nat Bales R N Active documented in this encounter Discharge Instructions * Attachments The following attachments cannot be sent through Care Everywhere. * ? The Seventh Month (Greek) documented in this encounter Medications at Time of Discharge albuterol sulfate HFA 108 (90 Base) MCG/ACT inhaler Inhale 1 puff into the lungs 2 (two) times a day. lamoTRIgine ER (LAMICTAL XR) 200 MG 24 hr tablet Take 1 tablet (200 mg total) by mouth daily. Multiple Vitamin (MULTI-DAY VITAMINS OR) documented as of this encounter Progress Notes * Tatum Cuba MD - 02/17/2025 10:49 PM CDT OB Emergency Department Triage Note Patient Name: Iris WEBSTER Date of : 1995 Admission Date: 02/17/2025 S: Iris WEBSTER is a 29-year-old female at 30w3d gestation who presents due to DFM in the setting of recent fall. Patient states that around 5:30PM she fell on her knees and states that she has felt the baby move less since then. Denies vaginal bleeding, leakage of fluid, contractions, headache, visual changes, chest pain, SOB, RUQ pain, N/V, fever, chills, cough, constipation, diarrhea, dysuria. complications: Hx GDMA2 Hx IVF pregnancies Depression: on Lamictal 100mg, was on Abilify OB History: OB History Para Term AB Living 3 1 1 1 1 SAB IAB Ectopic Molar Multiple Live Births 1 0 1 # Outcome Date GA Lbr Jose/2nd Weight Sex Type Anes PTL Lv 3 Current 2 Term 11/28/22 39w1d 33:01 / 01:37 3520 g (7 lb 12.2 oz) M Vag-Spont EPI N YVONNE 1 SAB 06/11/20 PMH: Past Medical History[1] Physical Exam Temp: [98.2 ??F (36.8 ??C)] 98.2 ??F (36.8 ??C) Pulse: [78] 78 Resp: [17] 17 BP: (94)/(50) 94/50 GEN: NAD CV: Regular rate PULM: Respirations non-labored on room air ABD: Gravid, non-tender EXT: warm, well perfused, negative edema SSE: Deferred FHT: Baseline 130, moderate variability, + accelerations, - decelerations TOCO: Irritability ASSESSMENT/PLAN: Iris WEBSTER is a 29-year-old female at 30w3d gestation, presenting with decreased movement. Decreased Movement - Monitoring movements with kick counts - Reactive and reassuring NST - movement returned to baseline during triage evaluation kick counts were reviewed the patient. The perception of at least four movements in onehour when she is at rest and focused on counting is appropriate. The patient was counseled to seek medical attention if she notices any fewer kick counts from her baseline in the future. Discussed and evaluated with Dr. Montana Cuba MD 02/18/2025 [1] Past Medical History: Diagnosis Date Anemia Anxiety disorder, unspecified Asthma ([facility]) Bipolar disorder ([facility]) Borderline personality disorder ([facility]) 2020 Croup Depression Gestational diabetes ([facility]) Infertility, female IVF Cosigned by Zara Boyle MD at 02/18/2025 6:32 AM CDT Associated attestation - Zara Boyle MD - 02/18/2025 6:32 AM CDT Teaching Physician - IZARA MD, performed a History and Physical examination of the patient and discussed the management with the resident. I reviewed the Resident's note and agree with the findings and plan of care, except as I have documented. Teaching physician supervised resident in person. documented in this encounter Plan of Treatment Not on file documented as of this encounter Procedures Procedure Name Priority Date/Time Associated Diagnosis Comments NONSTRESS TEST STAT 02/17/2025 10:49 PM CDT documented in this encounter Visit Diagnoses Not on filedocumented in this encounter Administered Medications Inactive Administered Medications - up to 3 most recent administrations Medication Order MAR Action Action Date Dose Rate Site acetaminophen (TYLENOL) tablet 650 mg 650 mg, Oral, Every 6 hours PRN, Mild pain (Scale 1 - 3), Starting on 02/17/25 at 2249, Until 02/18/25 at 0157, Maximum dose of acetaminophen is 4000 mg from all sources in 24 hours. ondansetron (ZOFRAN) injection 4 mg 4 mg, Intravenous, Every 8 hours PRN, Nausea, Vomiting, Starting on 5/3/25 at 2249, Until 5/4/25 at 0157, IV push over 2-5 minutes. ondansetron (ZOFRAN-ODT) disintegrating tablet 8 mg 8 mg, Oral, Every 8 hours PRN, Nausea, Vomiting, Starting on 5/3/25 at 2249, Until 5/4/25 at 0157 documented in this encounter Active and Recently Administered Medications Times are shown in CDT. PRN Medication Order 02/15/2025 02/16/2025 02/17/2025 acetaminophen (TYLENOL) tablet 650 mg 650 mg, Oral, Every 6 hours PRN, Mild pain (Scale 1 - 3), Starting on 5/3/25 at 2249, Until 5/4/25 at 0157, Maximum dose of acetaminophen is 4000 mg from all sources in 24 hours. ondansetron (ZOFRAN) injection 4 mg 4 mg, Intravenous, Every 8 hours PRN, Nausea, Vomiting, Starting on 5/3/25 at 2249, Until 5/4/25 at 0157, IV push over 2-5 minutes. ondansetron (ZOFRAN-ODT) disintegrating tablet 8 mg 8 mg, Oral, Every 8 hours PRN, Nausea, Vomiting, Starting on 5/3/25 at 2249, Until 5/4/25 at 0157 documented in this encounter Care Teams Strike Warfare/Missile Systems Officer Relationship Specialty Start Date End Date Kaiden Motta MD [address] [place] [phone] PCP - General FAMILY PRACTICE 11/28/19 Diane Barry [facility] Architectural Technician CARDIOVASCULAR DISEASE 02/06/19 Sadie Monroe NP [address] [place] [address] Nurse Practitioner Nurse Practitioner Women's Health 02/06/21 documented as of this encounter
--- OUTSIDE RECORDS SUMMARY | 2025-02-19 06:57 | XMS_ITS | Referral Summary ---
Author Organization [facility] Address [address] [place] [address] Care Team Providers Care Trial Mgr Name Role Phone Sadie Monroe NP Primary Care Provider [phone] Encounters Date Type Department Care Team Description 02/01/2025 10:19 AM CDT - 02/01/2025 11:35 AM CDT Hospital Encounter [address] [address] Betty Joiner MD Discharge Disposition: Discharge to home or self care 01/18/2025 Telephone [facility] [address] [place] [address] Kyle Perez MD Home sleep study results 01/16/2025 9:00 AM CDT - 01/16/2025 11:59 PM CDT Hospital Encounter [facility] [address] [place] [address] Snoring Discharge Disposition: Discharge to home or self care 11/23/2024 Telephone [facility] [address] [place] [address] Sadie Garay, [facility] Insurance from Last 3 Months Allergies Active Allergy Reactions Criticality Noted Date Comments Divalproex Vision changes Medium 02/01/2025 catatonic Medications lamoTRIgine (LaMICtal) 100 mg tablet Take 120 mg by mouth daily Active buPROPion (WELLBUTRIN) 100 mg tabletIndication s:Anxiety with Depression Take 100 mg by mouth once Active aspirin 81 mg enteric coated tablet Take 162 mg by mouth daily Active vit 13-ecje-zfiyb-dh a 27mg iron- 800 mcg-250 mg capsule Take by mouth Active Active Problems Problem Noted Date Diagnosed Date Snoring 10/17/2024 Assessment & Plan (10/17/2024 8:21 AM SENIOR CLINICAL RESEARCH ASSOCIATE): The patient presents with snoring and daytime fatigue and witnessed nocturnal gasping episodes. I have recommended proceeding with a nocturnal polysomnogram with a split night protocol if necessary and no MSLT. She will follow up here in 4 months. Estimated Date of Delivery Comme nts Yes 04/25/2025 Based on Patient Reported Social History Tobacco Use Types Packs/Day Years [...] than three times a week 11/15/2022 Attends [employer] Services Not on file 11/15 Active Member [...] staff should administer the PHQ-9) 5 11/15/2022 [facility] of Occupat ional Health - Occupational Stress [...] slept in a fci (including now)? No 11/15/2022 Personal Safety Answer Date Recorded Getting School Help Needed Denies 10/16 Estimated Date of Delivery Comme nts Yes 04/25/2025 Based on Patient Reported Sex and Gender Information Value Date Recorded Sex Assigned at Not on file Legal Sex Female 11:52 AM CDT Gender Identity Not on file Sexual Orientation Not on file Last Filed Vital Signs Vital Sign Reading Time Taken Comments Blood Pressure 96/53 02/01/2025 10:31 AM CDT Pulse 88 02/01/2025 10:31 AM CDT Temperature 36.7 C (98.1 F) 02/01/2025 10:31 AM CDT Respiratory Rate 16 02/01/2025 10:31 AM CDT Oxygen Saturation 97% 02/01/2025 10:31 AM CDT Inhaled Oxygen Concentration - - Weight 69.6 kg (153 lb 6.4 oz) 02/01/2025 10:31 AM CDT Height 167.6 cm (5' 6 ) 02/01/2025 10:31 AM CDT Body Mass Index 24.76 02/01/2025 10:31 AM CDT Plan of Treatment Upcoming Encounters Date Type Department Care Team (Late st Contact Info) Description 04/25/2025 Hospital Encounter [facility] [address] [place] [address] Betty Joiner MD [address] [place] [address] Procedures Procedure Name Priority Date/Time Associated Diagnosis Comments PORTABLE/HOME SLEEP STUDY Routine 01/16/2025 9:03 AM CDT Snoring from Last 3 Months Results * Portable/Home Sleep Study (01/16/2025 9:03 AM CDT) us Jerica De La Cruz BILLET BED OPERATOR SLEEP CENTER ORDERABLES Final Result Performing Organization Address City/State/[facility] Co de Phone Number [facility] [address] [place] [address] from Last 3 Months Insurance [facility] [employer] PPO Member Subscriber Plan / Payer (Ef fective 2022-Present) Name:Quita Webster Member ID:[id number] Relation to Subscriber:Spouse Name:DEON,ADAM Subscriber ID:[id number] Date of :1990 (Home) Address: [address] [place] [address] Payer ID:[id number] (NAIC) Type:[facility] HMO/PPO Address: [place] [id number] [employer] PPO Member Subscriber Plan / Payer (Ef fective 2022-Present) Name:Quita Webster Member ID:[id number] Relation to Subscriber:Spouse Name:DEON,ADAM Subscriber ID:[id number] Date of :1989 (Home) Address: [address] [place] [address] Payer ID:[id number] (NAIC) Type:[facility] HMO/PPO Address: [address] [place] [employer] Care Teams Trial Mgr Relationship Specialty Start Date End Date Sadie Monroe NP [address] [place] [address] PCP - General 04/20/22
--- OUTSIDE RECORDS SUMMARY | 2025-02-19 06:57 | XMS_ITS | Data Portability ---
Author Organization [facility], [address] Neurology ([place]) Address [address] 4[address] [place] [address] Care Team Providers Care Cripple Chaser Name Role Phone LADARIUS BARNARD Primary Care [...] on this date of service including both vovo-hw-fnwd and mnu-gvit-qx-face time excluding any separately reportable services. [email or web address] Not available 05/11/2024 08:32:52 10/08/2024 10/08/2024 Test(s) [...] None recorded. Lab wet mount, vaginal 2023 [facility], [address] [place] [address], [id number], 14:44:20 urinalysis, complete 2023 [facility], [address] [place] [address], [id number], 15:09:13 Referral None recorded. Procedures None recorded. Surgeries None recorded. Imaging None recorded. Medication Orders cephalexin 500 mg capsule 2023 024 [email or web address] [id number], [address] [place], [address], 14:00:42 prednisone 10 mg tablet 2023 024 [email or web address] [id number], [address], [place], [id number], 12:53:41 Patient TargetsNo targets recorded. Patient InstructionsNo instructions recorded. Reason for Referral None Reported. Results Created Date Observation Date Name Description Value Unit Range Abnormal Flag Note LastModifiedBy Organization Detail LastModifiedTime 10/08/20 24 10/08/2024 wet mount , vagin al wet prep Not Available [facility] [address] [place] [address], [id number], 10/08/2024 14:44:20 10/08/20 24 10/08/2024 wet mount , vagin al yeast NONE SEEN none seen Not Available [facility] [address] [place] [address], [id number], 10/08/2024 14:44:20 10/08/20 24 10/08/2024 wet mount , vagin al WBC FEW none seen abnormal Not Available [facility] [address] [place] [address], [id number], 10/08/2024 14:44:20 10/08/20 24 10/08/2024 wet mount , vagin al clue cells NONE SEEN negati ve abnormal Clue Cell Inter preta tion: Posit leighann Resul t = >20% Clue Cells Seen Negat leighann Resul t = <20% Clue Cells Seen Not Available [facility] [address] [place] [address], [id number], 10/08/2024 14:44:20 10/08/20 24 10/08/2024 wet mount bere trichomonas NONE SEEN none seen Not Available [facility] [address] [place] [address], [id number], 10/08/2024 14:44:20 10/08/20 24 10/08/2024 wet mount bere source VAG Not Available [facility] [address] [place] [address], [id number], 10/08/2024 14:44:20 10/08/20 24 10/08/2024 urina lysis [...] CLINI AMANDA SIGNI FICAN T. Not Available [facility] [address] [place] [address], [id number], 10/08/2024 15:09:13 10/08/20 24 10/08/2024 urina lysis , compl ete color YELLO Not Available [facility] [address] [place] [address], [id number], 10/08/2024 15:09:13 10/08/20 24 10/08/2024 urina lysis , compl ete appearance SLCLD Not Available [facility] [address] [place] [address], [id number], 10/08/2024 15:09:13 10/08/20 24 10/08/2024 urina lysis , compl ete sp gravity 1.020 1.005- 1.030 Not Available [facility] [address] [place] [address], [address], 10/08/2024 15:09:13 10/08/20 24 10/08/2024 urina lysis , compl ete pH 6.0 5.0-7. 5 Not Available [facility] [address] [place] [address], [id number], 10/08/2024 15:09:13 10/08/20 24 10/08/2024 urina lysis , compl ete protein NEG negati ve Not Available [facility] [address] [place] [address], [id number], 10/08/2024 15:09:13 10/08/20 24 10/08/2024 urina lysis , compl ete glucose NEG negati ve Not Available [facility] [address] [place] [address], [id number], 10/08/2024 15:09:13 10/08/20 24 10/08/2024 urina lysis , compl ete ketone NEG negati ve Not Available [facility] [address] [place] [address], [id number], 10/08/2024 15:09:13 10/08/20 24 10/08/2024 urina lysis , compl ete bilirub NEG negati ve Not Available [facility] [address] [place] [address], [id number], 10/08/2024 15:09:13 10/08/20 24 10/08/2024 urina lysis , compl ete blood NEG negati ve Not Available [facility] [address] [place] [address], [id number], 10/08/2024 15:09:13 10/08/20 24 10/08/2024 urina lysis , compl ete urobil 0.2 <=1.0 Not Available [facility] [address] [place] [address], [id number], 10/08/2024 15:09:13 12/22/10/08/2024 urina lysis , compl ete nitrite NEG negati ve Not Available [facility] [address] [place] [address], [id number], 10/08/2024 15:09:13 10/08/20 24 10/08/2024 urina lysis , compl ete leuk 1+ negati ve abnormal Not Available [facility] [address] [place] [address], [id number], 10/08/2024 15:09:13 10/08/20 24 10/08/2024 urina lysis , compl ete WBC 3-5 (0-5)/ hpf Not Available [facility] [address] [place] [address], [address], 10/08/2024 15:09:13 10/08/20 24 10/08/2024 urina lysis , compl ete RBC 0-2 (0-2)/ hpf Not Available [facility] [address] [place] [address], [id number], 10/08/2024 15:09:13 10/08/20 24 10/08/2024 urina lysis , compl ete epith 3-5 0-10/h pf Not Available [facility] [address] [place] [address], [id number], 10/08/2024 15:09:13 10/08/20 24 10/08/2024 urina lysis , compl ete hyal cast 0-2 (0-2)/ lpf Not Available [facility] [address] [place] [address], [id number], 10/08/2024 15:09:13 10/08/20 24 10/08/2024 urina lysis , compl ete bacteria 2+ none abnormal Not Available [facility] [address] [place] [address], [id number], 10/08/2024 15:09:13 05/03/20 24 04/25/2024 MR, arthr ogram , hip No observ ation record ed. [email or web address] Not Available 2023 10:18:26 05/03/2004/25/2024 XR, arthr ogram , hip No observ ation record ed. [email or web address] Not Available 2023 10:19:12 Result Notes None recorded. Problems Name Problem SNOMED Code Status Onset Date Resolution Date Notes Provider Name and Address Organization Details Recorded Time Vaginal discharge 428990869 Active 2023 Brisa Ashwin [facility], [facility] 4 14:05:21 Acute urinary tract infection 125315695 Active 2023 Graciela Tidwell APRN [address] [facility], [place], [address], [facility] 4 15:33:00 Pain of left hip joint 3875341962451 00 Active 2023 Yash Guadarrama [facility] 4 11:18:22 Inflammatio n of hip joint 059073978 Active 2023 Victorino Carlton MD [address] , [place], [address], [facility] 4 11:21:22 Effusion of joint of left hip 3419561602176 07 Active 2023 Shanae Shan [facility] 4 13:52:32 Synovitis of hip 609351093 Active 2023 Victorino Carlton MD [address] [facility], [place], [address], [facility] 4 17:32:55 Problem Notes None recorded. Procedures Surgical History None recorded. Imaging Results Imaging Date Name Status LastModified by Organiz [facility] Details LastModified Time 04/25/2024 MR, arthrogram , [...] Address Organization Details Last Updated DateTime 04/25/2024 62294.51 g 78 /min 99 % 99 % Christianne Shrestha [facility] 04/25/2024 10:45:32 Date Recorded Body height Body mass index (BMI) Body weight Body temperature Heart rate Oxygen saturation Oxygen saturation in Arterial blood by Pulse oximetry Systolic blood pressure Diastolic blood pressure Provider Name and Address Organization Details Last Updated DateTime 4 167.64 cm 21.3 kg/m2 99463.4 7 g 99 [degF] 80 /min 99 % 99 % 122 mm[Hg] 60 mm[Hg] Pollo Upton [facility] 4 14:54:11 Social History None recorded. Functional Status None recorded. Mental Status None recorded. Family History Nothing Reported. Medical History No medical history recorded. Gynecological HistoryNo gynecological history recorded. Obstetrics History GPAL:G 0 P 0 0 0 0 Past Encounters Encounter ID Performer Location Encounter Start Date Encounter Closed Date Diagnosis/Indication Diagnosis SNOMED-CT Code Diagnosis ICD10 Code Diagnosis Note [id number] Victorino Carlton MD [address] [facility] [address] [place] [address],[address] [place] [phone] 04/25/2024 10:27:53 04/25/2024 18:56:11 Pain of left hip joint 6146143240 71561 M25.552 Effusion o f joint of left hip 2754225174 21166 M25.452 Y93.02 [id number] Victorino Carlton MD [address] [facility] [place] [address] [place] [address] 05/10/2024 15:16:29 05/10/2024 18:42:32 Synovitis of hip 623675337 M65.852 [id number] Graciela Tidwell APRN [facility] [address] [place] [phone] 10/08/2024 13:50:14 10/08/2024 15:36:59 Vaginal discharge 037712475 N89.8 Acute urin joanie tract infection 882708438 N39.0 Health Concerns Section Related Observation LastModified by Organization Detai ls LastModified Time None Recorded Concern Status LastModified by Organization Details LastModified Time None Recorded Advance Directives Directive None Recorded Payers Encounter Date Sequence Insurance Name Policy Number Policy Humphrey Covered Member ID Humphrey Member ID Guarantor Name 04/25/2024 1 [facility] [id number] Iris Herbert [id number] Iris Jiang 04/25/2024 2 [facility] [employer] [facility] - GEHA - DOS PRIOR TO 2024 (PPO) Iris Herbert [id number] Iris Jiang 05/10/2024 1 [facility] [id number] Iris Herbert [id number] Iris Jiang 05/10/2024 2 [facility] [employer] - [place] - DOS PRIOR TO 2024 (PPO) Iris Herbert [id number] Iris Jiang 10/08/2024 1 [facility] [id number] Iris Herbert [id number] Iris Jiang 10/08/2024 1 [employer] [id number] Xander Jiang [id number] Iris Jiang Notes Date Note Type Note Provider Name and Address Organization Details Recorded Time 10/08/2024 text/html Patient is a pleasant 29-year-old female that comes in complaining of vaginal irritation onset this morning. Patient denies vaginal discharge. Graciela Tidwell APRN [address] [place] [address], [phone], [facility] 10/09/2024 14:03:26 OBGyn Episode No OBEpisode recorded.
--- OUTSIDE RECORDS SUMMARY | 2025-02-19 06:57 | XMS_ITS | Clinical Summary ---
Author Organization [facility] Address [facility] [place] [address] Care Team Providers Care Publicity Director Name Role Phone Diane Barry PHARMACY TECHNICIAN INSTRUCTOR-BC Unavailable Kaiden Motta MD Primary Care Provider Sadie Monroe PLANT CHIEF Unavailable [phone] Allergies Active Allergy Reactions Criticality Noted Date Comments Divalproex Sodium Blurred vision,Dizziness,Hallu cinations,Other (see comment) 07/13/2023 Valproic Acid Other (see comment) 09/30/2023 Blurred vision, dizziness, psychosis Medications Multiple Vitamin (MULTI-DAY VITAMINS OR) Active albuterol sulfate HFA 108 (90 Base) MCG/ACT inhaler Inhale 1 puff into the lungs 2 (two) times a day. Active lamoTRIgine ER (LAMICTAL XR) 200 MG 24 hr tablet Take 1 tablet (200 mg total) by mouth daily. Active folic acid (FOLVITE) 400 MCG tablet Take 1 tablet (400 mcg total) by mouth daily. Active ARIPiprazole (ABILIFY) 30 MG Tab tablet Take 1 tablet (30 mg total) by mouth daily. 4 02/18/20 25 Discontinu ed(Error) buPROPion XL (WELLBUTRIN XL) 300 MG 24 hr tablet Take 1 tablet (300 mg total) by mouth every morning. 3 02/18/20 25 Discontinu ed(Error) Active Problems Problem Noted Date Diagnosed Date (HHS/HCC) 11/27/2022 Moderate asthma without complication (HHS/HCC) 0 02/06/2019 Stress and adjustment reaction 02/06/2019 Weight disorder 02/06/2019 Estimated Date of Delivery Comme nts Yes 04/25/2025 Based on Other B asis Encounters Date Type Department Care Team Description 02/17/2025 10:22 PM CDT - 02/17/2025 11:38 PM CDT Hospital Encounter [facility] ED Obstetrics [address] [place] [address] Leyda Hernandez MD Nelson, Erica E, MD Fall Discharge Disposition: Home or Self Care (Routine Discharge) 02/17/2025 Travel from Last 3 Months Family History Medical History Relation Comments Asthma [...] often do you attend chur ch or evangelical services? More than 4 times per year 11/27/2022 Do you belong to any clubs o r organizations such as hinduism groups, unions, fraternal or athletic groups, or [...] and heating? Not hard at all 11/27/2022 [facility] [place] of Occupat ional Health - Occupational Stress [...] to sleep or slept in a senior living (including now)? No 11/27/2022 Estimated Date of [...] 17 02/17/2025 10:54 PM CDT Oxygen Saturation 97% 11/30/2022 9:00 AM FLOOR LAYER Inhaled Oxygen Concentration - - Weight 69.9 kg (154 lb) 02/17/2025 10:23 PM CDT Height 167.6 cm (5' 6 ) 02/17/2025 10:23 PM CDT Body Mass Index 24.86 02/17/2025 10:23 PM CDT Plan of Treatment Health Maintenance Due Date Last Done Comments Cervical Cancer Screening Pa p Smear (Age 30 to 64) Every 3 Years 1994 Annual Physical 1997 Hepatitis B Vaccines (1 of 3 - 19+ 3-dose series) 2013 Pneumococcal Vaccine: Pediatrics (0 to 5 Years) and At-Risk Patients (6 to 49 Years) (1 of 2 - PCV) 2013 COVID-19 Vaccine (2023-2 5 season) 2024 [...] patient's age to complete this topic RSV Immunization or 60+ Years (No Doses Required) Completed RSV Immunizations Under 20 Months Aged Out No longer eligible b ased on patient's age to complete this topic Procedures Procedure Name Priority Date/Time Associated Diagnosis Comments NONSTRESS TEST STAT 02/17/2025 10:49 PM CDT HEPATITIS C ANTIBODY Routine 07/16/2022 from Last 3 Months or Most Recently Relevant to Health Maintenance Results * HEPATITIS C ANTIBODY (07/16/2022) HEPATITIS C AB non-reacti ve Comment:actually drawn on us Default History Genericprovider LABORATORY Final Result from Last 3 Months or Most Recently Relevant to Health Maintenance Insurance Advance Directives * Full Code (Latest Code [...] 12:44 PM 10/08/2022 3:27 PM Care Teams Publicity Director Relationship Specialty Start Date End Date Kaiden Motta MD [address] [place] [address] PCP - General FAMILY PRACTICE 11/28/19 Diane Barry, PHARMACY TECHNICIAN INSTRUCTOR- [place] [employer] Machine Operator CARDIOVASCULAR DISEASE 02/06/19 Sadie Monroe NP [address] [place] [address] Nurse Practitioner Nurse Practitioner Women's Health 02/06/21
--- OUTSIDE RECORDS SUMMARY | 2025-02-19 06:57 | XMS_ITS | Clinical Summary ---
Author Organization [facility] Address [address] [place] [id number] Care Team Providers Care Trust Clerk Name Role Phone Sadie Monroe NP Primary Care Provider [phone] Allergies Active Allergy Reactions Criticality Noted Date Comments Divalproex Vision changes Medium 02/01/2025 catatonic Medications lamoTRIgine (LaMICtal) 100 mg tablet Take 120 mg by mouth daily Active buPROPion (WELLBUTRIN) 100 mg tabletIndication s:Anxiety with Depression Take 100 mg by mouth once Active aspirin 81 mg enteric coated tablet Take 162 mg by mouth daily Active vit 13-[id number]-[id number]-dh a 27mg iron- 800 mcg-250 mg capsule Take by mouth Active Active Problems Problem Noted Date Diagnosed Date Snoring 10/17/2024 Assessment & Plan (10/17/2024 8:21 AM AMERICAN BOARD CERTIFIED ORTHOTIST): The patient presents with snoring and daytime fatigue and witnessed nocturnal gasping episodes. I have recommended proceeding with a nocturnal polysomnogram with a split night protocol if necessary and no MSLT. She will follow up here in 4 months. Estimated Date of Delivery Comme nts Yes 04/25/2025 Based on Patient Reported Encounters Date Type Department Care Team Description 02/01/2025 10:19 AM CDT - 02/01/2025 11:35 AM CDT Hospital Encounter [address] [phone] Betty Joiner MD Discharge Disposition: Discharge to home or self care 01/18/2025 Telephone [facility] [address] [place] [address] Kyle Perez MD Home sleep study results 01/16/2025 9:00 AM CDT - 01/16/2025 11:59 PM CDT Hospital Encounter [facility] [address] [place] [address] Snoring Discharge Disposition: Discharge to home or self care 11/23/2024 Telephone [facility] [address] [place] [address] Sadie Garay, [facility] Insurance from Last 3 Months Social History Tobacco [...] than three times a week 11/15/2022 Attends Synagogue Services Not on file 11/15 Active Member [...] staff should administer the PHQ-9) 5 11/15/2022 [facility] [place] of Occupat ional Health - Occupational Stress [...] place to sleep or slept in a custodial (including now)? No 11/15/2022 Personal Safety Answer [...] SAB Ectopic Multiple Livin g Live Births 3 1 1 1 1 1 Date Outcome GA Total Labor Labor/2nd/3rd Weight Sex Type Anes PTL Nubia A1 A5 Name Clin Term 05/2020 SAB 8w0d Current Summary Episode Dates Number of Fetuses Estimated Date of Delivery 02/01/2025 - Present (02/19/2025) 04/25/2025 (set by Rosemarie Crouch NP on 02/01/2025 based on Patient Reported) Dating Summary Based On ADAM GA Diff Patient Reported 04/25/2025 Working Vitals Pregravid Weight Height TWG (As of 02/19/2025) Pregrav id BMI 167.6 cm (5' 6 ) Date GA Fund Present FHR Mvmt BP Weight Edema Alb Glu Ket Dil/ Eff/Sta 28w1d Inpatient data not displayed here. See encounter summary. Notes Progress Notes - Hospital En counter - 02/01/2025 - GA:28w1d 02/01/2025 - 28w1d - Rosemarie Crouch NP CHAPITO Webster is a 29 y.o. female female at 28w1d gestation S: Presents for decreased movement x2 days. She has no other complaints and is feeling well. She is feeling some movement just less then normal. O: Vital signs: BP 96/53 Pulse 88 Temp 36.7 C (98.1 F) (Oral) Resp 16 Ht 167.6 cm (5' 6 ) Wt 69.6 kg (153 lb 6.4 oz) SpO2 97% BMI 24.76 kg/m Monitoring: Baseline: 130 bpm, Variability: Moderate, Accelerations: Present and Decelerations: None Uterine Activity: No contractions seen on toco Interpretation: Reactive Diagnostic Review Lab Results Component Value Date WBC 11.5 (H) 10/09/2022 HGB 11.0 (L) 10/09/2022 HCT 33.6 (L) 10/09/2022 MCV 85.3 10/09/2022 LABPLAT 233 10/09/2022 A/P: Quita Webster is a 29 y.o. female female at 28w1d gestation #FWB Reactive NST + FM now Reviewed kick counts Disposition- Discharge to home with follow up as scheduled Rosemarie Crouch NP Cosigned by Betty Joiner MD at 02/01/2025 12:52 PM CDT Associated attestation - Betty Joiner MD - 02/01/2025 12:52 PM CDT I have reviewed and agree with the documentation by the resident/VECTOR CONTROL SPECIALIST. I did not see the patient. Betty Joiner MD Last Filed Vital Signs Vital Sign Reading [...] st Contact Info) Description 04/25/2025 Hospital Encounter [address] [phone] Betty Joiner MD [address] [place] [address] Health Maintenance Due Date Last Done Comments Cervical Cancer Screening 1994 Hepatitis C Screening 1994 Varicella Vaccines (1 of 2 - 13+ 2-dose series) 2007 Hepatitis B Screening 2012 Regular Well Visit/Exam 18-64 2012 Pneumococcal vaccine <65 (1 of 2 - PCV) 2013 Depression Screening 11/15/2023 11/15/2022, 11/15/2022 Covid-19 Vaccine (4 - 2023-2 5 season) 2024 10/30/2021, 12/07/2020, [...] AM CDT) us Jerica De La Cruz VECTOR CONTROL SPECIALIST SLEEP CENTER ORDERABLES Final Result [facility] [address] [place] [address], [facility] from Last 3 Months Insurance [employer] [place] [employer] [facility] Address: [address] [place] [phone] [employer] [facility] Address: [address] [address] [place] [address] [facility] Care Teams Trust Clerk Relationship Specialty Start Date End Date Sadie Monroe NP [address] [place] [address] PCP - General 04/20/22
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
[2025-02-19 07:22] LABS: Glucose Fasting Gestational 94 mg/dL (>/=95)
[2025-02-19 08:41] LABS: Glucose 1 Hour Gest 146 mg/dL (>/=180)
[2025-02-19 09:44] LABS: Glucose 2 Hour Gest 143 mg/dL (>/= 155)
[2025-02-19 11:02] LABS: Glucose 3 Hour Gest 112 mg/dL (>/=140)
== END 2025-02-19 06:56 | disposition home or self-care (01) ==
PROVIDERS: PCP Family Medicine; Visit Provider Student in an Organized Health Care Education/Training Program
DX: O09.299 Supervision of pregnancy with other poor reproductive or obstetric history, unspecified trimester (principal); Z86.32 Personal history of gestational diabetes; Z3A.00 Weeks of gestation of pregnancy not specified
CPT/HCPCS: 36415; 82951; 82952

== ENCOUNTER 2025-04-02 10:09 | Outpatient (CLI) | payer BC, OTHER, SELFPAY ==
--- OUTSIDE RECORDS SUMMARY | 2025-04-02 11:00 | XMS_ITS | Data Portability ---
Author Organization [facility], [address] [facility] ([place]) Address [address] 4th [place] [address] Care Team Providers Care Carcass Splitter Name Role Phone LADARIUS BARNARD Primary Care Provider [phone] Assessment Encounter Date Assessment Date Assessment LastModified [...] on this date of service including both apng-gr-vshv and wxf-mlpq-fe-face time excluding any separately reportable services. [email or web address] Not available 05/11/2024 08:32:52 10/08/2024 10/08/2024 Test(s) [...] None recorded. Lab wet mount, vaginal 2023 [facility], [address] [place] [address], [id number], 14:44:20 urinalysis, complete 2023 [facility], [address] [place] [address], [id number], 15:09:13 Referral None recorded. Procedures None recorded. Surgeries None recorded. Imaging None recorded. Medication Orders cephalexin 500 mg capsule 2023 024 [email or web address] [id number], [address] [place], [address], 14:00:42 prednisone 10 mg tablet 2023 024 [email or web address] [id number], [address], [place], [id number], 12:53:41 Patient TargetsNo targets recorded. Patient InstructionsNo instructions recorded. Reason for Referral None Reported. Results Created Date Observation Date Name Description Value Unit Range Abnormal Flag Note LastModifiedBy Organization Detail LastModifiedTime 10/08/20 24 10/08/2024 wet mount , vagin al wet prep Not Available [facility] [address] [place] [address], [id number], 10/08/2024 14:44:20 10/08/20 24 10/08/2024 wet mount , vagin al yeast NONE SEEN none seen Not Available [facility] [address] [place] [address], [id number], 10/08/2024 14:44:20 10/08/20 24 10/08/2024 wet mount , vagin al WBC FEW none seen abnormal Not Available [facility] [address] [place] [address], [address], 10/08/2024 14:44:20 10/08/20 24 10/08/2024 wet mount , vagin al clue cells NONE SEEN negati ve abnormal Clue Cell Inter preta tion: Posit leighann Resul t = >20% Clue Cells Seen Negat leighann Resul t = <20% Clue Cells Seen Not Available [facility] [address] [place] [address], [id number], 10/08/2024 14:44:20 10/08/20 24 10/08/2024 wet mount bere trichomonas NONE SEEN none seen Not Available [facility] [address] [place] [address], [id number], 10/08/2024 14:44:20 10/08/20 24 10/08/2024 wet mount bere source VAG Not Available [facility] [address] [place] [address], [id number], 10/08/2024 14:44:20 10/08/20 24 10/08/2024 urina lysis [...] Not Available [facility] [address] [place] [address], [id number], 10/08/2024 15:09:13 10/08/20 24 10/08/2024 urina lysis , compl ete color YELLO Not Available [facility] [address] [place] [address], [id number], 10/08/2024 15:09:13 10/08/20 24 10/08/2024 urina lysis , compl ete appearance SLCLD Not Available [facility] [address] [place] [address], [id number], 10/08/2024 15:09:13 10/08/20 24 10/08/2024 urina lysis , compl ete sp gravity 1.020 1.005- 1.030 Not Available [facility] [address] [place] [address], [address], 10/08/2024 15:09:13 10/08/20 24 10/08/2024 urina lysis , compl ete pH 6.0 5.0-7. 5 Not Available [facility] [address] [place] [address], [address], 10/08/2024 15:09:13 10/08/20 24 10/08/2024 urina lysis , compl ete protein NEG negati ve Not Available [facility] [address] [place] [address], [address], 10/08/2024 15:09:13 10/08/20 24 10/08/2024 urina lysis , compl ete glucose NEG negati ve Not Available [facility] [address] [place] [address], [address], 10/08/2024 15:09:13 10/08/20 24 10/08/2024 urina lysis , compl ete ketone NEG negati ve Not Available [facility] [address] [place] [address], [address], 10/08/2024 15:09:13 10/08/20 24 10/08/2024 urina lysis , compl ete bilirub NEG negati ve Not Available [facility] [address] [place] [address], [address], 10/08/2024 15:09:13 10/08/20 24 10/08/2024 urina lysis , compl ete blood NEG negati ve Not Available [facility] [address] [place] [address], [address], 10/08/2024 15:09:13 10/08/20 24 10/08/2024 urina lysis , compl ete urobil 0.2 <=1.0 Not Available [facility] [address] [place] [address], 71070, 10/08/2024 15:09:13 12/22/10/08/2024 urina lysis , compl ete nitrite NEG negati ve Not Available [facility] [address] [place] [address], [address], 10/08/2024 15:09:13 10/08/20 24 10/08/2024 urina lysis , compl ete leuk 1+ negati ve abnormal Not Available [facility] [address] [place] [address], 65[address], 10/08/2024 15:09:13 10/08/20 24 10/08/2024 urina lysis , compl ete WBC 3-5 (0-5)/ hpf Not Available [facility] [address] [place] [address], [id number], 10/08/2024 15:09:13 10/08/20 24 10/08/2024 urina lysis , compl ete RBC 0-2 (0-2)/ hpf Not Available [facility] [address] [place] [address], 58[address], 10/08/2024 15:09:13 10/08/20 24 10/08/2024 urina lysis , compl ete epith 3-5 0-10/h pf Not Available [facility] [address] [place] [address], 468[address], 10/08/2024 15:09:13 10/08/20 24 10/08/2024 urina lysis , compl ete hyal cast 0-2 (0-2)/ lpf Not Available [facility] [address] [place] [address], [address], 10/08/2024 15:09:13 10/08/20 24 10/08/2024 urina lysis , compl ete bacteria 2+ none abnormal Not Available [facility] [address] [place] [address], [address], 10/08/2024 15:09:13 05/03/20 24 04/25/2024 MR, arthr ogram , hip No observ ation record ed. [email or web address] Not Available 2023 10:18:26 05/03/20 24 04/25/2024 XR, arthr jammie , hip No observ ation record ed. [email or web address] Not Available 2023 10:19:12 Result Notes None recorded. Problems Name Problem SNOMED Code Status Onset Date Resolution Date Notes Provider Name and Address Organization Details Recorded Time Vaginal discharge 649193917 [facility] 14:05:[facility] Acute urinary tract infection 566894067 Active 2023 Graciela Tidwell APRN [address] [facility], [place], [address], [facility] 4 15:33:00 Pain of left hip joint 6613282807435 00 Active [address] [facility] 4 11:18:22 Inflammatio n of hip joint 150223766 Active 2023 Victorino Carlton MD [address] [facility], [place], [address], [facility] 4 11:21:22 Effusion of joint of left hip 5153389129237 07 Active [address] [facility] 4 13:52:32 Synovitis of hip 328903991 Active 2023 Victorino Carlton MD [address] [facility], [place], [address], [facility] 4 17:32:55 Problem Notes None recorded. Medical Equipment None Reported. [...] Address Organization Details Last Updated DateTime 04/25/2024 02101.51 g 78 /min 99 % 99 % Christianne Shrestha [facility] 04/25/2024 10:45:32 Date Recorded Body height Body mass index (BMI) Body weight Body temperature Heart rate Oxygen saturation Oxygen saturation in Arterial blood by Pulse oximetry Systolic blood pressure Diastolic blood pressure Provider Name and Address Organization Details Last Updated DateTime 4 167.64 cm 21.3 kg/m2 14007.4 7 g 99 [degF] 80 /min 99 % 99 % 122 mm[Hg] 60 mm[Hg] Pollo Upton [facility] 4 14:54:11 Social History None recorded. Functional Status None recorded. Mental Status None recorded. Family History Nothing Reported. Medical History No medical history recorded. Gynecological HistoryNo gynecological history recorded. Obstetrics History GPAL:G 0 P 0 0 0 0 Past Encounters Encounter ID Performer Location Encounter Start Date Encounter Closed Date Diagnosis/Indication Diagnosis SNOMED-CT Code Diagnosis ICD10 Code Diagnosis Note [id number] Victorino Carlton MD [address] [facility] ([place]) [address] [place] [address] 04/25/2024 10:27:53 04/25/2024 18:56:11 Pain of left hip joint 0320144720 97922 M25.552 Effusion o f joint of left hip 1938383124 05192 M25.452 Y93.02 [id number] Victorino Carlton MD [address] [facility] [address] [place] [address] 05/10/2024 15:16:29 05/10/2024 18:42:32 Synovitis of hip 553137426 M65.852 [id number] Graciela Tidwell APRN [facility] [address] [place] [address] 10/08/2024 13:50:14 10/08/2024 15:36:59 Vaginal discharge 265135866 N89.8 Acute urin joanie tract infection 747994019 N39.0 Health Concerns Section Related Observation LastModified by Organization Detai ls LastModified Time None Recorded Concern Status LastModified by Organization Details LastModified Time None Recorded Advance Directives Directive None Recorded Payers Insurance Date Sequence Insurance Name Policy Number Policy Humphrey Covered Member ID Humphrey Member ID Guarantor Name 10/08/2024 3 [employer] () [id number] Xander Jiang [id number] Iris Jiang 02/21/2025 1 [facility] [id number] Iris Herbert [id number] Iris Jiang 10/08/2024 2 [facility] - DOS PRIOR TO 2024 (PPO) Iris Herbert [id number] Iris Jiang 02/09/2025 2 [facility] () [id number] Xander Jiang [id number] Iris Jiang 02/09/2025 1 [employer] [id number] Xander Jiang [id number] Iris Jiang Notes Date Note Type Note Provider Name and Address Organization Details Recorded Time 10/08/2024 text/html Patient is a pleasant 29-year-old female that comes in complaining of vaginal irritation onset this morning. Patient denies vaginal discharge. Graciela Tidwell, CARD PLACER [address] [facility], [place], [address], [facility] 10/09/2024 14:03:26 OBGyn Episode No OBEpisode recorded.
--- OUTSIDE RECORDS SUMMARY | 2025-04-02 11:00 | XMS_ITS | Clinical Summary ---
Author Organization [facility] Address [address] [place] [address] Care Team Providers Care Shotblast Operator Name Role Phone Sadie Monroe NP Primary Care Provider [phone] Allergies Active Allergy Reactions Criticality Noted Date Comments Divalproex Vision changes Medium 02/01/2025 catatonic Medications lamoTRIgine (LaMICtal) 100 mg tablet Take 120 mg by mouth daily Active buPROPion (WELLBUTRIN) 100 mg tabletIndication s:Anxiety with Depression Take 100 mg by mouth once Active aspirin 81 mg enteric coated tablet Take 162 mg by mouth daily Active vit 43-jxdv-xwzcy-dh a 27mg iron- 800 mcg-250 mg capsule Take by mouth Active Active Problems Problem Noted Date Diagnosed Date Snoring 10/17/2024 Assessment & Plan (10/17/2024 8:21 AM FLEET MECHANIC): The patient presents with snoring and daytime [...] - 02/01/2025 11:35 AM CDT Hospital Encounter [address] [address] Betty Joiner MD Discharge Disposition: Discharge to home or self care 01/18/2025 Telephone [facility] [address] [place] [address] Kyle Perez MD Home sleep study results 01/16/2025 9:00 AM CDT - 01/16/2025 11:59 PM CDT Hospital Encounter [facility] [address] [place] [address] Snoring Discharge Disposition: Discharge to home or self care from Last 3 Months Social History Tobacco [...] than three times a week 11/15/2022 Attends [employer] Not on file 11/15 Active Member [...] staff should administer the PHQ-9) 5 11/15/2022 [facility] [place] of Occupat ional Health - Occupational Stress [...] in a senior care (including now)? No 11/15/2022 Personal Safety Answer [...] Estimated Date of Delivery 02/01/2025 - Present (04/02/2025) 04/25/2025 (set by Rosemarie Crouch NP on 02/01/2025 based on Patient Reported) Dating Summary Based On ADAM GA Diff Patient Reported 04/25/2025 Working Vitals Pregravid Weight Height TWG (As of 04/02/2025) Pregrav id BMI 167.6 cm (5' 6) Date GA Fund Present FHR Mvmt BP Weight Edema Alb Glu Ket Dil/ Eff/Sta 5 28w1d Inpatient data not displayed here. See [...] (Oral) Resp 16 Ht 167.6 cm (5' 6) Wt 69.6 kg (153 lb 6.4 oz) [...] and agree with the documentation by the resident/PARTICLEBOARD FACTORY WORKER. I did not see the patient. Betty [...] 10:31 AM CDT Height 167.6 cm (5' 6) 02/01/2025 10:31 AM CDT Body Mass Index 24.76 02/01/2025 10:31 AM CDT Plan of Treatment Upcoming Encounters Date Type Department Care Team (Late st Contact Info) Description 04/25/2025 Hospital Encounter [address] [address] Betty Joiner MD [address] [place] [address] Health Maintenance Due Date Last Done Comments [...] AM CDT) us Jerica De La Cruz PARTICLEBOARD FACTORY WORKER SLEEP CENTER ORDERABLES Final Result [facility] [address] [place] [address], [facility] from Last 3 Months Insurance [place] [facility] CLAIMS Care Teams Shotblast Operator Relationship Specialty Start Date End Date Sadie Monroe NP [address] [place] [address] [place] [id number] PCP - General 04/20/22
--- OUTSIDE RECORDS SUMMARY | 2025-04-02 11:00 | XMS_ITS | Referral Summary ---
Author Organization [facility] Address [address] [place] [address] Care Team Providers Care Admin Asst Name Role Phone Sadie Monroe NP Primary Care Provider [phone] Encounters Date Type Department Care Team Description 02/01/2025 10:19 AM CDT - 02/01/2025 11:35 AM CDT Hospital Encounter [address] [address] Betty Joiner MD Discharge Disposition: Discharge to home or self care 01/18/2025 Telephone [facility] [address] [place] [address] Kyle Perez MD Home sleep study results 01/16/2025 9:00 AM CDT - 01/16/2025 11:59 PM CDT Hospital Encounter [facility] [address] [place] [address] Snoring Discharge Disposition: Discharge to home or self care from Last 3 Months Allergies Active Allergy Reactions Criticality Noted Date Comments Divalproex Vision changes Medium 02/01/2025 catatonic Medications lamoTRIgine (LaMICtal) 100 mg tablet Take 120 mg by mouth daily Active buPROPion (WELLBUTRIN) 100 mg tabletIndication s:Anxiety with Depression Take 100 mg by mouth once Active aspirin 81 mg enteric coated tablet Take 162 mg by mouth daily Active vit 17-pmuk-gencv-dh a 27mg iron- 800 mcg-250 mg capsule Take by mouth Active Active Problems Problem Noted Date Diagnosed Date Snoring 10/17/2024 Assessment & Plan (10/17/2024 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 No 11/15/2022 Personal Safety Answer [...] Contact Info) Description 04/25/2025 Hospital Encounter [facility] [address] [place] [address] Betty Joiner MD [address] [place] [address] Procedures Procedure Name Priority Date/Time Associated Diagnosis Comments PORTABLE/HOME SLEEP STUDY Routine 01/16/2025 9:03 AM CDT Snoring from Last 3 Months Results * Portable/Home Sleep Study (01/16/2025 9:03 AM CDT) us Jerica De La Cruz RETAIL BEAUTY SPECIALIST SLEEP CENTER ORDERABLES Final Result Performing Organization Address City/State/[facility] Co de Phone Number [facility] [address] [place] [address] from Last 3 Months Insurance [facility] Care Teams Admin Asst Relationship Specialty [place] [address] [place] [address] [place] [address] PCP - General 04/20/22
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
--- OUTSIDE RECORDS SUMMARY | 2025-04-02 11:00 | XMS_ITS | Patient Health Record ---
Author Organization [facility] [employer] Address [address] [facility] [address] [place] [address] Care Team Providers Care Marker Machine Name Role Phone Kaiden Motta MD Primary Care Provider Lalit Nava Unavailable [phone] Allergies Allergen (clinical drug ingredient) Drug/Non Drug [...] Oxazepam (BZO) n 0 - 300 ng/ml 6-dksgbccxmy-9,5-vyhkqwfb-4, 3-diphenylpyrrolidine (EDDP) n 0 - 300 ng/ml Methamphetamine (MET) n 0 - 1000 ng/ml Methylenedioxymethamphetamine (MDMA) n 0 - 500 ng/ml Morphine (MOP 300/[id number]) n 0 - 300 ng/ml Methadone (MTD) [...] WITH NEEDLE 0.3 ML 30 *Reorder from [facility] for eRx and Interaction Alerts* Not-Taking CONTOUR NEXT GEN METER *Reorder from [facility] for eRx and Interaction Alerts* Not-Taking Folic [...] 12/18/2024 Encounters Encounter Location Date Provider Diagnosis [facility] [address] [place] [id number] 12/18/2024 Lalit Lopez Anxiety, generalized F41.1 ; (HHS/HCC) Z34.90 and Major depressive disorder F32.9 Assessments Encounter Date Diagnosis (ICD Code) Assessment Notes Treatment Notes Treatment Clinical Notes Section Notes 12/18/2024 Anxiety, generalized (ICD-10 - F41.1) 12/18/2024 (HHS/HCC) (ICD-10 - Z34.90) 21 weeks 12/18/2024 Major depressive disorder (ICD-10 - F32.9) 12/18/2024 Other [email or web address]://www.postp artum.net/get-hel p/nrj-yzdvpb-rvuq ort-meetings/#adh d Multiple support groups- and international [...] Insured Coverage Start Date Coverage End Date [facility] [address] [place] [address] [id number] QUITA Jiang Self - patient is the insured [facility] [address] [place] [address] [id number] QUITA Jiang Self - patient is the insured Medical [...]
--- OUTSIDE RECORDS SUMMARY | 2025-04-02 11:00 | XMS_ITS | Clinical Summary ---
Author Organization [facility] Address [facility] [facility] [place] [address] Care Team Providers Care Sales Lead Generator Name Role Phone Unavailable Primary Care Provider Unavailabl e Source Comments [facility],non-owned Affiliates and Associated Physician Practices is amultiple site organization consisting of ambulatory clinics and hospital sitesin [place], [place], [place] and [place]. This disclosure is being madepursuant to the Care Everywhere program and may not contain all information available regarding this patient. Last updated 18.[facility] [employer] Allergies Active Allergy Reactions Criticality Noted Date Comments Valproic Acid Dizziness 03/07/2025 Medications * Be aware that medications may not be up to date on this document. Alwaysverify current medications with the patient. lamoTRIgine (LaMICtal) 100 MG tablet Take 1 (one) tablet by mouth once daily Active Vit-Fe Fumarate-FA ( vitamin) 28-0.8 MG tablet Take 1 (one) tablet by mouth once daily Active Active Problems Problem Noted Date Diagnosed Date Depression affecting pregnan cy in third trimester, antepartum 03/08/2025 History of gestational diabe chang in prior , currently in third trimester 02/28/2025 Estimated Date of Delivery Comme nts Yes 04/25/2025 Based on Patient Reported, Per records Encounters Date Type Department Care Team Description 03/07/2025 8:17 AM CDT - 03/07/2025 11:59 PM CDT Hospital Encounter [facility] [address] [place] [address] Sunshine Boyce MD Discharge Disposition: Home or Self Care 03/07/2025 8:16 AM CDT Hospital Encounter [facility] [address] [place] [address] Sunshine Boyce MD Discharge Disposition: Home or Self Care 03/07/2025 8:16 AM CDT Hospital Encounter [facility] [address] [place] [address] Sunshine Boyce MD Discharge Disposition: Home or Self Care 02/20/2025 Travel from Last 3 Months Social History Tobacco Use Types Packs/Day Years Used Date Smoking Tobacco: Never Assessed Estimated Date of Delivery Comme nts Yes 04/25/2025 Based on Patient Reported, Per records Sex and Gender Information Value Date Recorded Sex Assigned at Not on file 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 Gender Identity Not on file Sexual Orientation Not on file Last Filed Vital Signs Vital Sign Reading Time Taken Comments Blood Pressure 100/59 03/07/2025 10:27 AM CDT Pulse 86 03/07/2025 10:27 AM CDT Temperature - - Respiratory Rate 18 03/07/2025 10:27 AM CDT Oxygen Saturation - - Inhaled Oxygen Concentration - - Weight 71.2 kg (157 lb) 03/07/2025 10:27 AM CDT Height - - Body Mass Index - - Plan of Treatment Upcoming Encounters Date Type Department Care Team (Late st Contact Info) Description 04/06/2025 9:45 AM CDT Hospital Encounter [facility] [address] [place] [phone] Health Maintenance Due Date Last Done Comments HIV SCREENING 2009 DTAP/TDAP/TD VACCINES (1 - Tdap) 2013 HEPATITIS B VACCINE (1 of 3 - 19+ 3-dose series) 2013 PAP SMEAR 2015 COVID-19 VACCINE (1 - 2023-2 5 season) 2024 DEPRESSION SCREENING 10/18/2024 OB-ONE HOUR GLUCOSE 01/17/2025 OB-TDAP CURRENT 01/24/2025 OB-RHOGAM INJECTION 01/31/2025 OB-GROUP B STREP SCREEN 03/21/2025 INFLUENZA VACCINE (Season Ended) 2025 ZOSTER VACCINE (1 of 2) 2044 HEPATITIS C SCREENING Completed 07/16/2022 HIB VACCINE Aged Out No longer eligi ble based on patient's age to complete this topic HPV VACCINE Aged Out No longer eligi ble based on patient's age to complete this topic MENINGOCOCCAL (Group B) VACC INE SHARED DECISION-MAKING Aged Out No longer eligibl e based on patient's age to complete this topic MENINGOCOCCAL GROUPS A/C/Y/W VACCINE Aged Out No longer eligible b ased on patient's age to complete this topic PNEUMOCOCCAL VACCINE Aged Out No long er eligible based on patient's age to complete this topic Respiratory Syncytial Virus (RSV) Vaccine Pt: or over 60 yrs (No Doses Required) Completed Procedures Procedure Name Priority Date/Time Associated Diagnosis Comments SONOGRAM - COMPLETE Routine 03/07/2025 8 :30 AM CDT Encounter for anatomic survey (HCC) Bipolar disease during in third trimester (HCC) 33 weeks gestation of ([facility]) from Last 3 Months Results * SONOGRAM - COMPLETE (03/07/2025 8:30 AM CDT) Linked Results Indication ======== Bipolar Disorder-Ambilify and Lamictal Medication Exposure in History ====== OB History 3. Para 1 [id number] 1. live 2022. Gest. age 39 w + 0 d. Weight 3,515 g. Sex of child: male. Details: Vaginal delivery; GDM 2. miscarriage 2019. Details: IVF, Monosomy X Maternal Assessment Physical Exam Height 165 cm, 5 ft 5 in. Weight 71 kg, 157 lb. Initial weight 59 kg, 129 lb. BMI 26.13 kg/m . Initial BMI 21.47 kg/m . Weight gain 13 kg, 28 lb Method ====== Transabdominal ultrasound. View: Sufficient ========= Grimes . Number of fetuses: 1 Dating ====== Date Details Gest. age ADAM Stated ADAM 33 w + 0 d 04/25/2025 U/S 03/07/2025 based upon AC, BPD, Femur, HC 33 w + 6 d 04/19/2025 Assigned dating based on stated ADAM, selected on 03/07/2025 33 w + 0 d 04/25/2025 General Evaluation Cardiac activity present. FHR 136 bpm. Presentation: cephalic Placenta: Placental site: right lateral Umbilical cord: Cord vessels: 3 vessel cord. Insertion site: normal insertion Amniotic fluid: Amount of AF: normal. MVP 4.3 cm. DENISSE 15.0 cm. Q1 3.7 cm, Q2 3.4 cm, Q3 3.6 cm, Q4 4.3 cm Biometry BPD 87.1 mm 35w 1d 93% Hadlock HC 316.4 mm 35w 4d 79% Hadlock Cerebellum tr 46.0 mm 92% [place] AC 293.1 mm 33w 2d 60% Hadlock Femur 60.3 mm 31w 3d 7% Hadlock Humerus 52.9 mm 30w 6d 10% Alanna HC / AC 1.08 -/- Hadlock Weight Calculation: EFW 2,126 g 45% Hadlock EFW (lb,oz) 4 lb 11 oz EFW by Hadlock ([id number]) appropriate Growth Overview Exam date GA BPD (mm) HC (mm) AC (mm) FL (mm) HL (mm) EFW (g) 03/07/2025 33w 0d 87.1 93% 316.4 79% 293.1 60% 60.3 7% 52.9 10% 2126 45% Anatomy The following structures appear normal: Head / Neck Cranium. Lateral ventricles. Choroid plexus. Midline falx. Cavum septi pellucidi. Cerebellum. Cisterna magna. Thalami. Face Lips. Profile. Nose. Orbits. Heart / Thorax 4-chamber view. RVOT view. LVOT view. 3-vessel view. 4-hvwevh-goegpgy view. Situs. Aortic arch view. Bicaval view. Ductal arch view. Interventricular septum. Great vessels. Right lung. Left lung. Diaphragm. Abdomen Cord insertion. Stomach. Kidneys. Bladder. Genitals. Extremities / Skeleton Arms. Right hand. Legs. The following structures could not be adequately visualized: Spine Cervical spine. Thoracic spine. Lumbar spine. Sacral spine. Extremities / Skeleton Left hand. Feet. sex: male. Maternal Structures Right Ovary Normal Left Ovary Not visualized Appearance: Adnexa appears normal Impression ========= Single, live, intrauterine at 33w 0d The size is appropriate. The amniotic fluid volume is normal. No major malformations were seen within the limitations of ultrasound Follow-up ======== Follow up US in 4 weeks, to assess interval growth. See separate [facility] visit note. Coding ====== Procedures [id number]: US Preg Uterus Detailed [facility] [employer] PACS Anatomical Region Laterality Modality Other 03/07/2025 8:30 AM CDT us Shawn Momin MD [facility] ORDERABLES Edited Result - Final from Last 3 Months Insurance [facility]
== END 2025-04-02 10:10 | disposition home or self-care (01) ==
LOC: ANHLAB 10:11
PROVIDERS: PCP Student in an Organized Health Care Education/Training Program; Visit Provider Obstetrics & Gynecology
DX: R35.0 Frequency of micturition (principal)
CPT/HCPCS: 87086

== ENCOUNTER 2025-04-07 12:57 | Outpatient (RCR) | payer BC, OTHER, SELFPAY ==
[2025-02-08 17:02] VITALS: BP 97/55; PULSE 85
[2025-04-07 13:46] VITALS: BP 104/58; PULSE 105
== END 2025-04-21 09:55 | disposition other institution (70) ==
LOC: ANHOBOP 12:57
PROVIDERS: PCP Family Medicine; Visit Provider Obstetrics & Gynecology
DX: O26.893 Other specified pregnancy related conditions, third trimester (principal)
CPT/HCPCS: 59025

== ENCOUNTER 2025-04-18 13:43 | Inpatient (IN) | payer BC, OTHER, SELFPAY ==
[2025-04-18] VITALS (98 sets, daily range): BP systolic 60–154; BP diastolic 42–139; PULSE 25–127; RESP 18; TEMP 36.8–37.6; O2SAT 93–99; BMI 27.0
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
--- OUTSIDE RECORDS SUMMARY | 2025-04-18 13:51 | XMS_ITS | Patient Health Record ---
Author Organization [facility] As Blue Badge Style Address [address] [facility] [address] [place] [address] Care Team Providers Care Windows Systems Administrator Name Role Phone Kaiden Motta MD Primary Care Provider Lalit Nava Unavailable [phone] Allergies Allergen (clinical drug ingredient) Drug/Non Drug [...] Oxazepam (BZO) n 0 - 300 ng/ml 2-bixihkquju-0,9-ngswflcz-6, 3-diphenylpyrrolidine (EDDP) n 0 - 300 ng/ml Methamphetamine (MET) n 0 - 1000 ng/ml Methylenedioxymethamphetamine (MDMA) n 0 - 500 ng/ml Morphine (MOP 300/[id number]) n 0 - 300 ng/ml Methadone (MTD) [...] 100 MG 1 tablet Oral Once a day; Duration: 90 days Active INSULIN SYRINGE U-100 WITH NEEDLE 0.3 ML 30 *Reorder from 3D Data for eRx and Interaction Alerts* Not-Taking CONTOUR NEXT GEN METER *Reorder from 3D Data for eRx and Interaction Alerts* Not-Taking Folic [...] 12/18/2024 Encounters Encounter Location Date Provider Diagnosis [facility] [address] [place] [phone] 12/18/2024 Lalit Lopez Anxiety, generalized F41.1 ; (HHS/HCC) Z34.90 and Major depressive disorder F32.9 Assessments Encounter Date Diagnosis (ICD Code) Assessment Notes Treatment Notes Treatment Clinical Notes Section Notes 12/18/2024 Anxiety, generalized (ICD-10 - F41.1) 12/18/2024 (HHS/HCC) (ICD-10 - Z34.90) 21 weeks 12/18/2024 Major depressive disorder (ICD-10 - F32.9) 12/18/2024 Other [email or web address]://www.postp artum.net/get-hel p/ukj-svqjis-fbgg ort-meetings/#adh d Multiple support groups- and international [...] Insured Coverage Start Date Coverage End Date [employer] [address] [place] [address] [id number] QUITA Jiang Self - patient is the insured [facility] [address] [place] [address] [id number] QUITA Jiang Self - patient is the [...]
--- OUTSIDE RECORDS SUMMARY | 2025-04-18 13:52 | XMS_ITS | Clinical Summary ---
Author Organization [facility] at the Medical Office Building Address [address] [place] [address] Care Team Providers Care Weight Count Operator Name Role Phone Sadie Monroe NP Primary Care Provider [phone] Allergies Active Allergy Reactions Criticality Noted Date Comments Divalproex Vision changes Medium 02/01/2025 catatonic Medications lamoTRIgine (LaMICtal) 100 mg tablet Take 120 mg by mouth daily Active buPROPion (WELLBUTRIN) 100 mg tabletIndication s:Anxiety with Depression Take 100 mg by mouth once Active aspirin 81 mg enteric coated tablet Take 162 mg by mouth daily Active vit 65-bvop-qjdiy-dh a 27mg iron- 800 mcg-250 mg capsule Take by mouth Active Active Problems Problem Noted Date Diagnosed Date Snoring 10/17/2024 Assessment & Plan (10/17/2024 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): The patient presents with snoring and daytime [...] - 02/01/2025 11:35 AM CDT Hospital Encounter [address] [address] Betty Joiner MD Discharge Disposition: Discharge to home or self care 01/18/2025 Telephone [facility] [address] [place] [address] Kyle Perez MD Home sleep study results from Last 3 Months Social History Tobacco [...] than three times a week 11/15/2022 Attends [employer] Not on file 11/15 Active Member [...] staff should administer the PHQ-9) 5 11/15/2022 [facility] of Occupat ional Health - Occupational [...] place to sleep or slept in a mcfp (including now)? No 11/15/2022 Personal Safety Answer [...] Estimated Date of Delivery 02/01/2025 - Present (04/18/2025) 04/25/2025 (set by Rosemarie Crouch NP on 02/01/2025 based on Patient Reported) Dating Summary Based On ADAM GA Diff Patient Reported 04/25/2025 Working Vitals Pregravid Weight Height TWG (As of 04/18/2025) Pregrav id BMI 167.6 cm (5' 6) [...] and agree with the documentation by the resident/INFRASTRUCTURE DESIGN ENGINEER. I did not see the patient. Betty [...] st Contact Info) Description 04/25/2025 Hospital Encounter [address] [address] Betty Joiner MD [address] [place] [address] Health Maintenance Due Date Last Done Comments [...] on patient's age to complete this topic [place] [place] [address] [employer] [facility] [id number] [place] [place] [address] Care Teams Weight Count Operator Relationship Specialty Start Date End Date Sadie Monroe NP [facility] [place] [address] PCP - General 04/20/22
--- OUTSIDE RECORDS SUMMARY | 2025-04-18 13:52 | XMS_ITS | Clinical Summary ---
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 This disclosure is being madepursuant to the Care Everywhere program and may not contain all information available regarding this patient. Last updated 18.[facility] Declara Allergies Active Allergy Reactions Criticality Noted Date [...] Encounters Date Type Department Care Team Description 04/06/2025 9:25 AM CDT - 04/06/2025 11:59 PM CDT Hospital Encounter [facility] Maternal & Care [address] [place] [address] Ketan Rene MD Discharge Disposition: Home or Self Care 03/07/2025 8:17 AM CDT - 03/07/2025 11:59 PM CDT Hospital Encounter [facility] [address] [place] [address] Sunshine Boyce MD Discharge Disposition: Home or Self Care 03/07/2025 8:16 AM CDT Hospital Encounter [facility] [address] [place] [address] Sunshine Boyce MD Discharge Disposition: Home or Self Care 03/07/2025 8:16 AM CDT Hospital Encounter [facility] [address] [place] [address] Sunshine Boyce MD Discharge Disposition: Home or Self Care 02/20/2025 Travel from Last 3 Months Social History Tobacco Use Types Packs/Day Years Used Date Smoking Tobacco: Never Assessed Estimated Date of Delivery Comme nts Yes 04/25/2025 Based on Patient Reported, Per records Sex and Gender Information Value Date Recorded Sex Assigned at Not on file 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 Gender Identity Not on file Sexual Orientation [...] Mass Index - - Plan of Treatment Health Maintenance Due Date Last Done Comments HIV SCREENING 2009 DTAP/TDAP/TD VACCINES (1 - Tdap) 2013 HEPATITIS B VACCINE (1 of 3 - 19+ 3-dose series) 2013 PAP SMEAR 2015 COVID-19 VACCINE ( - 2023-2 5 season) 2024 DEPRESSION SCREENING 10/18/2024 OB-ONE HOUR GLUCOSE 01/17/2025 OB-RHOGAM INJECTION 01/31/2025 OB-GROUP B STREP SCREEN 03/21/2025 INFLUENZA VACCINE (Season Ended) 2025 ZOSTER VACCINE (1 of 2) 2044 HEPATITIS C SCREENING Completed 09/22/2024 , 07/16/2022 OB-TDAP CURRENT Completed 03/14/2025 HIB VACCINE Aged Out No longer eligi ble based on patient's age to complete this topic HPV VACCINE Aged Out No longer eligi ble based on patient's age to complete this topic MENINGOCOCCAL (Group B) VACCINE SHARED DECISION-MAKING Aged Out No longer eligible based on patient's age to complete [...] Associated Diagnosis Comments SONOGRAM - COMPLETE Routine 04/06/2025 9 :42 AM CDT History of gestational diabetes in prior , currently in third trimester ([facility]) 36 weeks gestation of ([facility]) Bipolar disease during in third trimester ([facility]) Medication exposure during first trimester of ([facility]) Encounter for ultrasound to assess growth ([facility]) Depression affecting in third trimester, antepartum ([facility]) SONOGRAM - COMPLETE Routine 03/07/2025 8 :30 AM CDT Encounter for anatomic survey ([facility]) Bipolar disease during in third trimester ([facility]) 33 weeks gestation of ([facility]) from Last 3 Months Results * SONOGRAM - COMPLETE (04/06/2025 9:42 AM CDT) Only the most recent of2 resultswithin the time period is included. Linked Results Indication ======== Incomplete anatomy Bipolar disorder on Abilify & Lamictal Medication exposure in History ====== OB History 3. Para 1 [id number] 1. live 2022. Gest. age 39 w + 0 d. Weight 3,515 g. Sex of child: male. Details: Vaginal delivery; GDM 2. miscarriage 2019. Details: IVF, Monosomy X Maternal Assessment Physical Exam Height 165 cm, 5 ft 5 in. Weight 70 kg, 155 lb. Initial weight 59 kg, 129 lb. BMI 25.79 kg/m . Initial BMI 21.47 kg/m . Weight gain 12 kg, 26 lb Method ====== Transabdominal ultrasound. View: Suboptimal view: limited by late gestational age ========= Grimes . Number of fetuses: 1 Dating ====== Date Details Gest. age ADAM Stated ADAM 37 w + 2 d 04/25/2025 U/S 04/06/2025 based upon AC, BPD, Femur, HC 37 w + 5 d 04/22/2025 Assigned dating based on stated ADAM, selected on 03/07/2025 37 w + 2 d 04/25/2025 General Evaluation Cardiac activity present. FHR 143 bpm. Presentation: cephalic Placenta: Placental site: right lateral Umbilical cord: Cord vessels: 3 vessel cord. Insertion site: normal insertion Amniotic fluid: Amount of AF: normal. MVP 5.7 cm. DENISSE 17.4 cm. Q1 5.7 cm, Q2 5.4 cm, Q3 3.9 cm, Q4 2.4 cm Biometry BPD 96.0 mm 39w 1d 97% Hadlock HC 340.8 mm 39w 2d 73% Hadlock AC 334.9 mm 37w 3d 68% Hadlock Femur 67.9 mm 34w 6d 5% Hadlock Humerus 60.6 mm 35w 1d 24% Alanna HC / AC 1.02 Weight Calculation: EFW 3,144 g 56% Hadlock EFW (lb,oz) 6 lb 15 oz EFW by Hadlock (CAS-IW-JQ-FL) appropriate Growth Overview Exam date GA BPD (mm) HC (mm) AC (mm) FL (mm) HL (mm) EFW (g) 03/07/2025 33w 0d 87.1 93% 316.4 79% 293.1 60% 60.3 7% 52.9 10% 2126 45% 04/06/2025 37w 2d 96 97% 340.8 73% 334.9 68% 67.9 5% 60.6 24% 3144 56% Anatomy The following structures appear normal: Abdomen Stomach. Kidneys. Bladder. The following structures could not be adequately visualized: Spine Cervical spine. Thoracic spine. Lumbar spine. Sacral spine. Extremities / Skeleton Left hand. Feet. The following structures were documented previously: Head / Neck Cranium. Lateral ventricles. Choroid plexus. Midline falx. Cavum septi pellucidi. Cerebellum. Cisterna magna. Thalami. Nuchal fold. Face Lips. Profile. Nose. Nasal bone. Orbits. Heart / Thorax 4-chamber view. RVOT view. LVOT view. 3-vessel view. 4-nkuvmq-qiipwdq view. Situs. Aortic arch view. Bicaval view. Ductal arch view. Great vessels. Right lung. Left lung. Diaphragm. Abdomen Cord insertion. Bowel. Genitals. Extremities / Skeleton Arms. Right hand. Legs. sex: male. Impression ========= Single, live, intrauterine at 37w 2d The size & amniotic fluid volume are normal No malformations were seen within the limitations of ultrasound Comment ======== U/S cannot detect all structural, genetic, or functional , placental, or maternal abnormalities Follow-up ======== as clinically indicated Coding ====== Procedures 76348: US Preg Uterus Follow Up [employer] PACS Anatomical Region Laterality Modality Other 04/06/2025 9:42 AM CDT Shawn Momin MD [facility] ORDERABLES Edited Result - Final from Last 3 Months Insurance [facility]
--- OUTSIDE RECORDS SUMMARY | 2025-04-18 13:52 | XMS_ITS | Referral Summary ---
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 Name Role Phone Sadie Monroe NP Primary Care Provider [phone] Encounters Date Type Department Care Team Description 02/01/2025 10:19 AM CDT - 02/01/2025 11:35 AM CDT Hospital Encounter [address] [address] Betty Joiner MD Discharge Disposition: Discharge to home or self care 01/18/2025 Telephone [facility] [address] [place] [address] Kyle Perez MD Home sleep study results from Last 3 Months Allergies Active Allergy Reactions Criticality Noted Date Comments Divalproex Vision changes Medium 02/01/2025 catatonic Medications lamoTRIgine (LaMICtal) 100 mg tablet Take 120 mg by mouth daily Active buPROPion (WELLBUTRIN) 100 mg tabletIndication s:Anxiety with Depression Take 100 mg by mouth once Active aspirin 81 mg enteric coated tablet Take 162 mg by mouth daily Active vit 24-kpqt-mlxpo-dh a 27mg iron- 800 mcg-250 mg capsule Take by mouth Active Active Problems Problem Noted Date Diagnosed Date Snoring 10/17/2024 Assessment & Plan (10/17/2024 8:21 AM MANAGER LINUX): The patient presents with snoring and daytime [...] staff should administer the PHQ-9) 5 11/15/2022 [facility] of Occupat ional Health - Occupational Stress [...] st Contact Info) Description 04/25/2025 Hospital Encounter [address] [address] Betty Joiner MD [address] [place] [address] Insurance [employer] [place] [employer] [place] [facility] Care Teams Bulk Materials Handling Plant Operator Relationship Specialty Start Date End Date Sadie Monroe NP [address] [place] [address] PCP - General 04/20/22
--- OUTSIDE RECORDS SUMMARY | 2025-04-18 13:52 | XMS_ITS | Data Portability ---
Author Organization [facility], [address] [facility] ([place]) Address [address] [place] [address] Care Team Providers Care Surveillance Officer Name Role Phone LADARIUS BARNARD Primary Care Provider [phone] Assessment Encounter Date Assessment Date Assessment LastModified [...] on this date of service including both idcr-po-jcgi and flw-bjyq-hw-face time excluding any separately reportable services. [email or web address] Not available 05/11/2024 08:32:52 10/08/2024 10/08/2024 Test(s) [...] None recorded. Lab wet mount, vaginal 2023 [facility] In Only - In Laboratory, [address] [place] [address], [address], 14:44:20 urinalysis, complete 2023 [facility] In Only - In Laboratory, [address] [place] [address], [address], 15:09:13 Referral None recorded. Procedures None recorded. Surgeries None recorded. Imaging None recorded. Medication Orders cephalexin 500 mg capsule 2023 024 [email or web address] [id number], [address] [place], [address], 14:00:42 prednisone 10 mg tablet 2023 [email or web address] [id number], [address] [place], [place], [id number], 12:53:41 Patient TargetsNo targets recorded. Patient InstructionsNo instructions recorded. Reason for Referral None Reported. Results Created Date Observation Date Name Description Value Unit Range Abnormal Flag Note LastModifiedBy Organization Detail LastModifiedTime 10/08/20 24 10/08/2024 wet mount , vagin al wet prep Not Available In Only - In Laboratory [address] [place] [address], [id number], 10/08/2024 14:44:20 10/08/20 24 10/08/2024 wet mount , vagin al yeast NONE SEEN none seen Not Available In Only - In Laboratory [address] [place] [address], [address], 10/08/2024 14:44:20 10/08/20 24 10/08/2024 wet mount , vagin al WBC FEW none seen abnormal Not Available In Only - In Laboratory [address] [place] [address], [address], 10/08/2024 14:44:20 10/08/20 24 10/08/2024 wet mount , vagin al clue cells NONE SEEN negati ve abnormal Clue Cell Inter preta tion: Posit leighann Resul t = >20% Clue Cells Seen Negat leighann Resul t = <20% Clue Cells Seen Not Available In Only - In Laboratory [address] [place] [address], [address], 10/08/2024 14:44:20 10/08/20 24 10/08/2024 wet mount bere trichomonas NONE SEEN none seen Not Available In Only - In Laboratory [address] [place] [address], [address], 10/08/2024 14:44:20 10/08/20 24 10/08/2024 wet mount bere al source VAG Not Available In Only - In Laboratory [address] [place] [address], [address], 10/08/2024 14:44:20 10/08/20 24 10/08/2024 urina lysis [...] CLINI AMANDA SIGNI FICAN T. Not Available In Only - In Laboratory [address] [place] [address], [address], 10/08/2024 15:09:13 10/08/20 24 10/08/2024 urina lysis , compl ete color YELLO Not Available In Only - In Laboratory [address] [place] [address], [address], 10/08/2024 15:09:13 10/08/20 24 10/08/2024 urina lysis , compl ete appearance SLCLD Not Available In Only - In Laboratory [address] [place] [address], [address], 10/08/2024 15:09:13 10/08/20 24 10/08/2024 urina lysis , compl ete sp gravity 1.020 1.005- 1.030 Not Available In Only - In Laboratory [address] [place] [address], [address], 10/08/2024 15:09:13 10/08/20 24 10/08/2024 urina lysis , compl ete pH 6.0 5.0-7. 5 Not Available In Only - In Laboratory [address] [place] [address], [address], 10/08/2024 15:09:13 10/08/20 24 10/08/2024 urina lysis , compl ete protein NEG negati ve Not Available In Only - In Laboratory [address] [place] [address], [address], 10/08/2024 15:09:13 10/08/20 24 10/08/2024 urina lysis , compl ete glucose NEG negati ve Not Available In Only - In Laboratory [address] [place] [address], [address], 10/08/2024 15:09:13 10/08/20 24 10/08/2024 urina lysis , compl ete ketone NEG negati ve Not Available In Only - In Laboratory [address] [place] [address], [address], 10/08/2024 15:09:13 10/08/20 24 10/08/2024 urina lysis , compl ete bilirub NEG negati ve Not Available In Only - In Laboratory [address] [place] [address], [address], 10/08/2024 15:09:13 10/08/20 24 10/08/2024 urina lysis , compl ete blood NEG negati ve Not Available In Only - In Laboratory [address] [place] [address], [address], 10/08/2024 15:09:13 10/08/20 24 10/08/2024 urina lysis , compl ete urobil 0.2 <=1.0 Not Available In Only - In Laboratory [address] [place] [address], [address], 10/08/2024 15:09:13 10/08/2010 1010/08/2024 urina lysis , compl ete nitrite NEG negati ve Not Available In Only - In Laboratory [address] [place] [address], [address], 10/08/2024 15:09:13 10/08/20 24 10/08/2024 urina lysis , compl ete leuk 1+ negati ve abnormal Not Available In Only - In Laboratory [address] [place] [address], [address], 10/08/2024 15:09:13 10/08/20 24 10/08/2024 urina lysis , compl ete WBC 3-5 (0-5)/ hpf Not Available In Only - In Laboratory [address] [place] [address], [address], 10/08/2024 15:09:13 10/08/20 24 10/08/2024 urina lysis , compl ete RBC 0-2 (0-2)/ hpf Not Available In Only - In Laboratory [address] [place] [address], [address], 10/08/2024 15:09:13 10/08/20 24 10/08/2024 urina lysis , compl ete epith 3-5 0-10/h pf Not Available In Only - In Laboratory [address] [place] [address], [address], 10/08/2024 15:09:13 10/08/20 24 10/08/2024 urina lysis , compl ete hyal cast 0-2 (0-2)/ lpf Not Available In Only - In Laboratory [address] [place] [address], [address], 10/08/2024 15:09:13 10/08/20 24 10/08/2024 urina lysis , compl ete bacteria 2+ none abnormal Not Available In Only - In Laboratory [address] [place] [address], [address], 10/08/2024 15:09:13 05/03/20 24 04/25/2024 magaly DUNHAM , hip No observ ation record ed. [email or web address] Not Available 2023 10:18:26 05/03/2004/25/2024 XR, magaly agudelo , hip No observ ation record ed. [email or web address] Not Available 2023 10:19:12 Result Notes None recorded. Problems Name Problem SNOMED Code Status Onset Date Resolution Date Notes Provider Name and Address Organization Details Recorded Time Vaginal discharge 456435718 Active [facility]23 [facility] 14:05:[facility] Acute urinary tract infection 308337344 Active 2023 Graciela Tidwell APRN [address] [place] [address], [address], [facility] 4 15:33:00 Pain of left hip joint 5336512110756 00 Active 2023 Yash Guadarrama [facility] 4 11:18:22 Inflammatio n of hip joint 482708914 Active 2023 Victorino Carlton MD [address] [facility], [place], [address], [facility] 4 11:21:22 Effusion of joint of left hip 5005805084883 07 Active 2023 Shanae Shan [facility] 4 13:52:32 Synovitis of hip 343078604 Active 2023 Victorino Carlton MD [address] [place] [address], [address], [facility] 4 17:32:55 Problem Notes None recorded. [...] Address Organization Details Last Updated DateTime 04/25/2024 79693.51 g 78 /min 99 % 99 % Christianne Shrestha [facility] 04/25/2024 10:45:32 Date Recorded Body height Body mass index (BMI) Body weight Body temperature Heart rate Oxygen saturation Oxygen saturation in Arterial blood by Pulse oximetry Systolic blood pressure Diastolic blood pressure Provider Name and Address Organization Details Last Updated DateTime 4 167.64 cm 21.3 kg/m2 35827.4 7 g 99 [degF] 80 /min 99 % 99 % 122 mm[Hg] 60 mm[Hg] Pollo Upton [facility] 14:54:11 Social History None recorded. Functional Status None recorded. Mental Status None recorded. Family History Nothing Reported. Medical History No medical history recorded. Gynecological HistoryNo gynecological history recorded. Obstetrics History GPAL:G 0 P 0 0 0 0 Past Encounters Encounter ID Performer Location Encounter Start Date Encounter Closed Date Diagnosis/Indication Diagnosis SNOMED-CT Code Diagnosis ICD10 Code Diagnosis Note [id number] Victorino Carlton MD [address] [facility] ([place]) [address] [place] [address] 04/25/2024 10:27:53 04/25/2024 18:56:11 Pain of left hip joint 3092733323 91803 M25.552 Effusion o f joint of left hip 4987027742 44899 M25.452 Y93.02 [id number] Victorino Carlton MD [address] [facility] [address] [place] [address] 05/10/2024 15:16:29 05/10/2024 18:42:32 Synovitis of hip 851793870 M65.852 [id number] Graciela Tidwell APRN [facility] [address] [place] [address] 10/08/2024 13:50:14 10/08/2024 15:36:59 Vaginal discharge 362272178 N89.8 Acute urin joanie tract infection 691438078 N39.0 Health Concerns Section Related Observation LastModified by Organization Detai ls LastModified Time None Recorded Concern Status LastModified by Organization Details LastModified Time None Recorded Advance Directives Directive None Recorded Payers Insurance Date Sequence Insurance Name Policy Number Policy Humphrey Covered Member ID Humphrey Member ID Guarantor Name 10/08/2024 3 [employer] () [id number] Xander Jiang [id number] Iris Jiang 02/21/2025 1 [facility] [id number] Iris Herbert [id number] Iris Jiang 10/08/2024 2 COUNTS INCLUDE 234 BEDS AT THE [facility] SHAR[facility] - [facility] - DOS PRIOR TO 2024 (PPO) Iris Herbert [id number] Iris Jiang 02/09/2025 2 [facility] () [id number] Xander Jiang [id number] Iris Jiang 02/09/2025 1 [facility] (PP[facility]) [id number] Xander Jiang [id number] Iris Jiang Notes Date Note Type Note Provider Name and Address Organization Details Recorded Time 10/08/2024 text/html Patient is a pleasant 29-year-old female that comes in complaining of vaginal irritation onset this morning. Patient denies vaginal discharge. Graciela Tidwell, TOUR COUNSELOR [address] [place] [address], [phone], [facility] 10/09/2024 14:03:26 OBGyn Episode No OBEpisode recorded.
--- NOTE | 2025-04-18 13:59 | LDADM ---
This patient, Iris Jiang, was admitted to Labor/Delivery/Recovery 104 on 04/18/25 at 13:43. Plans for labor, pain management and were discussed with patient. Patient/family oriented to hospital policies and general routines including ID bracelet, bed and alarms, visiting hours, pain management, procedures, bathroom and other care routines, personal items, smoking policy, room service/diet and guest tray routines, security routines, and visiting hours. Patient/Family are encouraged to report perceived risks to care and to ask questions if they do not understand what they are told or what they should do. See OBIX for further documentation.
[2025-04-18] MEDS: LACTATED RINGERS 1,000 ML 125 ML IV CONT (14:27)
[2025-04-18] MEDS: AMPICILLIN 2 GM/NS 100 ML 2 GM/100 ML BAG IVPB (14:29)
[2025-04-18 14:32] LABS: Hematocrit 36.0 % (37.0-47.0); Hemoglobin 11.9 g/dL (12.0-15.0); Immature Granulocyte Percent A 1.3 % (0-0.5); Lymphocytes Absolute Auto 1.50 K/mm3 (0.9-3.2); Mean Corpuscular HGB Conc 33.1 g/dl (32-36); Mean Corpuscular Hemoglobin 28.4 pg (26-34); Mean Corpuscular Volume 85.9 fl (80-100); Nucleated Red Blood Cells Absolute Auto 0.000 K/mm3 (0.0-0.012); Nucleated Red Blood Cells Perc 0.0 % (0.0-0.2); Platelet Count Result 183 k/mm3 (150-375); Red Blood Count 4.19 M/mm3 (4.2-5.4); White Blood Count 9.1 K/mm3 (4.5-10.0)
[2025-04-18 15:15] LABS: Syphilis IgG/IgM Antibody Non-Reactive (Nonreactive)
[2025-04-18 15:19] LABS: Hepatitis B Surface Antigen Negative (Negative)
--- NOTE | 2025-04-18 17:59 | WPDANESEPP ---
Anes - Eval Pre Procedure Procedure: Labor epidural Date/Time: 04/18/25 17:59 Surgeon: Liliane Preop Diagnosis: Abdominal pain with contractions Pre Op Diagnosis: IOL Patient Data Age: 29 Gender: F Height: 1.68 m Weight: 76 kg Last Vital Signs Temp 99.6 F 04/18/25 14:26 Pulse 95 04/18/25 17:31 BP 103/62 04/18/25 17:31 O2 Del Method Room Air 04/18/25 13:57 Allergies Allergy/AdvReac Type Severity Reaction Status Date / Time divalproex sodium (From AdvReac Severe Other Verified 04/18/25 14:02 Depakote) Home Medications ?Medication ?Instructions ?Recorded ?Confirmed ?Type folic acid 20 mg capsule 20 mg PO DAILY 12/12/24 04/18/25 History vitamin-ferrous fumarate 1 cap PO DAILY 12/12/24 04/18/25 History 65 mg iron-folic acid 1 mg capsule lamotrigine 100 mg tablet 100 mg PO DAILY 02/07/25 04/18/25 History Laboratory Tests 04/18/25 14:13 WBC 9.1 K/mm3 (4.5-10.0) RBC 4.19 L M/mm3 (4.2-5.4) Hgb 11.9 L g/dL (12.0-15.0) Hct 36.0 L % (37.0-47.0) MCV 85.9 fl (80-100) MCH 28.4 pg (26-34) MCHC 33.1 g/dl (32-36) RDW 14.6 H % (11.5-14.5) Plt Count 183 k/mm3 (150-375) MPV 9.7 fl (7.4-10.4) Immature Gran % (Auto) 1.3 H % (0-0.5) Neut % (Auto) 72.9 % (45.5-73.1) Lymph % (Auto) 16.6 L % (18.3-44.2) [place] % (Auto) 8.1 % (2.6-8.5) Eos % (Auto) 0.8 % (0-4.4) Baso % (Auto) 0.3 % (0.2-1.2) Lymph # (Auto) 1.50 K/mm3 (0.9-3.2) [place] # (Auto) 0.7 H K/mm3 (0.1-0.6) Eos # (Auto) 0.1 K/mm3 (0-0.3) Baso # (Auto) 0.0 K/mm3 (0.0-0.1) Abs Immat Gran (auto) 0.12 H K/mm3 (0.00-0.031) Absolute Neuts (auto) 6.6 K/mm3 (1.3-6.7) Absolute Nucleated RBC 0.000 K/mm3 (0.0-0.012) Nucleated RBC % 0.0 % (0.0-0.2) Syphilis IgG/IgM Ab Non-reactive (Nonreactive) Hep Bs Antigen Negative (Negative) Rubella IgG Antibody 5.1 L IU/ML (10 - ) Blood Type O Positive Antibody Screen Negative : gestational age HCG: positive Patient hx anesthesia problems: none Family hx anesthesia problems: none Results Review: All pre-operative results and documents have been reviewed as part of the pre-operative evaluation. [facility] Past Medical History Medical History Personality disorder Depression Amenorrhea, primary Gestational diabetes Asthma Bipolar disorder Surgical History Surgical History History of hysteroscopy suction D&C missed AB Family History Family History Father Diabetes mellitus Social History Social History Smoking status: Never smoker Second hand tobacco smoke exposure: No Alcohol intake: never Substance use: never Substance use type: does not use Do You Feel Safe in your Home?: Yes Lack of Transportation: No Lack of Food: Never True Current Housing: I Have Housing Concerned About Future Housing: No Difficulty Paying Gas/Electric Bills: No Difficulty Paying for Meds: No Currently Unemployed: No Education: Bachelor's Degree Difficulty w/ Childcare or Family Care: No Living arrangements: with family Additional living arrangements comments: Occupation/Education: 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
[2025-04-18] MEDS: AMPICILLIN 1 GM/NS 50 ML 1 GM/50 ML BAG IVPB ×2 (19:03→23:11)
[2025-04-18] MEDS: OXYTOCIN 30 UNITS/NS 500 ML 30 UNITS/500 ML BAG IV CONT (20:45)
[2025-04-18] MEDS: PHENYLEPHRINE 1,000 MCG/10 ML SYRINGE 100 MCG IV PUSH ×2 (23:10→23:47)
[2025-04-19] VITALS (29 sets, daily range): BP systolic 76–138; BP diastolic 32–120; PULSE 66–152; RESP 14–18; TEMP 36.6–37.3; O2SAT 95–98
[2025-04-19] MEDS: OXYTOCIN 30 UNITS/NS 500 ML 30 UNITS/500 ML BAG 999 UNITS IV CONT (02:42)
--- NOTE | 2025-04-19 02:52 | WPDHPUPDATE1 ---
History and Physical Update Update Date/Time: 04/19/25 02:52 29 yo who presents at 39w0d for elective IOL History and Physical has been reviewed, including an updated exam of the patient. There are NO changes in the patient's condition. Risks, benefits, and alternatives have been discussed and questions answered. Patient agrees to proceed with procedure.
--- NOTE | 2025-04-19 02:53 | PM.OBPRVD ---
OB - Vaginal Delivery Note Procedure Delivery date: 04/19/25 Induction method: Per Misoprostol Protocol Delivery augmentation: Pitocin Delivery monitor: External FHT and External Uterine Route of delivery: Episiotomy description: None Laceration Description: Perineal - 2nd Degree Delivery repair: vicryl Specimen: No Quantitative Blood Loss (ml): 200 Anesthesia type: Epidural Disposition: Floor Complications: No immediate complications Narrative: Patient pushed for a spontaneous vaginal delivery. The fetus was delivered atraumatically and placed on the maternal abdomen. The cord was clamped and cut after 1 minute of life. The cord was double clamped and cut and a segment of cord was collected for cord gases. Cord blood was collected for blood type and Coomb's testing. The placenta delivered manually. The perineum was inspected and 2nd degree perineal laceration was noted. The laceration was repaired with 3-0 vicryl in a running fashion. The uterus was firm and good hemostasis was noted. Baby Date of : 04/19/25 Time of : 02:36 Gestational Age by Date: 39 gender: Male Weight (pounds): 8 Weight (ounces): 1 presentation: vertex position: Right Occiput Anterior Placenta delivery description: Manual Removal Cord Vessel Description: 3 Vessels score one minute: 8 score five minutes: 9
[2025-04-19] MEDS: OXYTOCIN 30 UNITS/NS 500 ML 30 UNITS/500 ML BAG 125 UNITS IV CONT (03:05)
[2025-04-19] MEDS: BENZOCAINE 20% AER SPR (*SP) 56 GM CAN 1 SPRAY TOPICAL (04:57)
[2025-04-19] MEDS: WITCH HAZEL 40 PADS 1 PAD TOPICAL (04:57)
--- NOTE | 2025-04-19 05:02 | OBPPTRN ---
Patient transferred to post room #278 via wheelchair. Support person present. Oriented to unit, room, information board, rooming in, admission packet and security measures. Patient verbalizes understanding.
[2025-04-19] MEDS: DOCUSATE SODIUM 100 MG CAPSULE PO ×2 (07:48→15:45)
[2025-04-19] MEDS: MULTIVIT/MIN/PREN/FOL AC/IRON TABLET 1 TAB PO (07:49)
[2025-04-19] MEDS: IBUPROFEN 600 MG TABLET PO ×2 (07:49→15:44)
--- NOTE | 2025-04-19 08:05 | PC.NURSE ---
Introductions made and plan of care discussed. Mom states that baby has been very sleepy today and has latched a few times. Father is present and supportive. Mom was unable to breastfeed her last baby and pumped for about 1 week. Her one month before the baby was born so she was under a lot of stress at the time. She feels excited and optimistic that she has good support and is planning to mostly breastfed with occasional supplementation and pumping. She would like to be given an insurance pump prior to discharge. She does not have a strong preference about which pump she receives. Parents are encouraged to call out at feedings so that we can work on waking baby and latching. Patient agrees to call out for assistance. Primary RN updated.
--- NOTE | 2025-04-19 11:05 | PC.NURSE ---
1105: Patient called out for assistance. Baby was skin to skin and sleeping on mom's chest. We moved him to the bassinet and stimulated him to wake. He stirred a bit so we put him up to the breast in cradle hold. Mom was shown cross cradle hold for greater infant head control. She chose to remain in cradle hold. We worked for at least 5 minutes before getting a latch. Baby was opening wide and rooting but not able to close his mouth around the nipple. When he did finally latch on, mom screamed out and pulled baby from the breast. She states that it is very painful and felt like baby was biting her. She agreed to try again and when baby latched and began to suckle, she screamed out and pulled him from the breast. Patient was offered the option to try the right breast to see if it felt better. She agreed and it took several tries for baby to open his mouth, but he did finally latch. Mom had a very strong reaction again, yelling 'ouch' and pushing baby away. We discussed the option of pumping to see what she gets or to provide formula supplementation. Mom wants an insurance pump but would like to give her breasts a 'break' for now since they are so sensitive. She wants to feed formula in the meantime. Mother asked if would always be so painful, and we reviewed latch on soreness versus nipple sensitivity. We are unable to assess the latch and feeding because mom could not tolerate sustained suckling. Formula given and reviewed use and volumes. RN updated. 1200: [employer] insurance pump given. Patient set up with a breast pump due to ineffective feeding/maternal preference. Mother was shown proper sizing (21mm) and placement of flanges, pump settings, and cleaning of pump parts. Recommended 15 minutes of pumping both breasts simultaneously. Patient is aware that pumping should not hurt. She is encouraged to use the highest comfortable suction setting, gradually increasing the level as she pumps. Patient is encouraged to call out for additional pump help if needed. Primary RN updated.??
--- NOTE | 2025-04-19 11:54 | P.PNOB_ITS ---
OB - PN: Subj Subjective Date/time seen: 04/19/25 11:54 Patient comments: no complaints, pain well controlled and tolerating diet [place] feeding status: exclusively breast feeding Narrative: patient doing well this AM. No complaints. Pain is well controlled. She reports minimal bleeding. She is ambulating and voiding without difficulty. She is tolerating PO. She denies N/V, fever, chills. OB - PN: Obj Data Labs 04/18/25 14:13 Labs: Laboratory Results - last 24 hr 04/18/25 14:13 WBC 9.1 RBC 4.19 L Hgb 11.9 L Hct 36.0 L MCV 85.9 MCH 28.4 MCHC 33.1 RDW 14.6 H Plt Count 183 MPV 9.7 Immature Gran % (Auto) 1.3 H Neut % (Auto) 72.9 Lymph % (Auto) 16.6 L [place] % (Auto) 8.1 Eos % (Auto) 0.8 Baso % (Auto) 0.3 Lymph # (Auto) 1.50 [place] # (Auto) 0.7 H Eos # (Auto) 0.1 Baso # (Auto) 0.0 Abs Immat Gran (auto) 0.12 H Absolute Neuts (auto) 6.6 Absolute Nucleated RBC 0.000 Nucleated RBC % 0.0 Syphilis IgG/IgM Ab Non-reactive Hep Bs Antigen Negative Rubella IgG Antibody 5.1 L Blood Type O Positive Antibody Screen Negative OB - PN A/P Plan day: 1 Plan: routine care Comments: patient doing well H/H stable afebrile, VSS patient desires circumcision. Risks, benefits, alternatives discussed. will proceed with infant circumcision anticipate d/c home tomorrow continue routine care Time Spent With Patient Time: Total time spent is greater than 50% in coordination of care (as documented) at patient's floor/unit and/or counseling patient: Time with patient: less than 15 minutes Review of Systems 2 Review of Systems: All systems reviewed & are unremarkable except as noted in HPI and below Exam 2 Const: General: comfortable and no acute distress Resp: Effort & Inspection: normal respiratory effort Cardio: Rate: regular rate GI: GI Palp: Yes Soft to palpation and No Tenderness to palpation present (GI) Auscultation: normal bowel sounds Other: fundus firm and below umbilicus. Psych: Affect: normal affect
--- NOTE | 2025-04-19 11:55 | P.DS_ITS ---
DS: Admitting Diagnosis Discharge Date 04/20/25 Admitting Diagnosis intrauterine at term DS: Discharge Diagnosis Discharge Diagnosis (1) Normal vaginal delivery: Code(s): O80 - Encounter for full-term uncomplicated delivery Status: Acute OB - DS: Summary OB Procedures : None OB Procedures Intrapartum: Spontaneous Vag Delivery OB Procedures: : None Peripartum Data Laceration Description: Perineal - 2nd Degree Episiotomy description: None Status at Discharge Functional status at discharge: independent ambulation Overall status at discharge: patient is back to baseline Time Spent with Patient Time attestation: Total time spent providing and/or coordinating discharge services: Time spent: Less than 30 minutes Exam Const: General: comfortable and no acute distress Resp: Effort & Inspection: normal respiratory effort Auscultation: clear to auscultation bilaterally Cardio: Rate: regular rate GI: GI Palp: Yes Soft to palpation Auscultation: normal bowel sounds Other: Fundus firm below umbilicus Psych: Appearance: grossly normal Mental Status: mental status grossly normal Affect: normal affect DS: Data Data Completed and Pending Labs on day of discharge: Labs from last 24 hours 04/18/25 14:13 WBC 9.1 RBC 4.19 L Hgb 11.9 L Hct 36.0 L MCV 85.9 MCH 28.4 MCHC 33.1 RDW 14.6 H Plt Count 183 MPV 9.7 Immature Gran % (Auto) 1.3 H Neut % (Auto) 72.9 Lymph % (Auto) 16.6 L [place] % (Auto) 8.1 Eos % (Auto) 0.8 Baso % (Auto) 0.3 Lymph # (Auto) 1.50 [place] # (Auto) 0.7 H Eos # (Auto) 0.1 Baso # (Auto) 0.0 Abs Immat Gran (auto) 0.12 H Absolute Neuts (auto) 6.6 Absolute Nucleated RBC 0.000 Nucleated RBC % 0.0 Syphilis IgG/IgM Ab Non-reactive Hep Bs Antigen Negative Rubella IgG Antibody 5.1 L Blood Type O Positive Antibody Screen Negative Discharge Plan Discharge Discharging Clinician: Shawn Momin Patient Disposition: Home Activity: as tolerated and pelvic rest Diet: regular Patient Instructions: Antibiotic Form, Perineal Tear with Delivery (DC), Vaginal Delivery (DC) Patient Language: Cameroonian Stand Alone Forms: General Discharge Information Follow-up/Referrals: Shawn Momin MD [Physician] - 4 Weeks Discharge Medications: New ibuprofen 600 mg tablet 600 mg PO Q6H PRN (Reason: pain) Qty: 30 0RF sennosides-docusate sodium [Senna with Docusate Sodium] 8.6-50 mg tablet 1 tab-cap PO HS Qty: 30 0RF acetaminophen 500 mg tablet 500 mg PO Q6H PRN (Reason: pain) Qty: 30 0RF Continued vit-iron fum-folic ac 65 mg iron- 1 mg capsule 1 cap PO DAILY lamotrigine 100 mg tablet 100 mg PO DAILY Discontinued folic acid 20 mg capsule 20 mg PO DAILY Date of admission: 04/18/25 13:43 Primary Care Provider: PHYSICIAN NOT ON STAFF,NONSTAFF Admitting Provider: Shawn Momin Attending physician on admission: Shawn Momin Condition: Stable
[2025-04-19] MEDS: ACETAMINOPHEN 325 MG TABLET 650 MG PO (19:45)
[2025-04-20 04:10] VITALS: BP 95/54; PULSE 72; RESP 14; TEMP 36.8; O2SAT 100
[2025-04-20 06:20] LABS: Hematocrit 34.4 % (37.0-47.0); Hemoglobin 11.2 g/dL (12.0-15.0)
[2025-04-20 07:07] VITALS: BP 103/57; PULSE 81; RESP 16; TEMP 36.7; O2SAT 98
[2025-04-20] MEDS: IBUPROFEN 600 MG TABLET PO (07:11)
[2025-04-20] MEDS: DOCUSATE SODIUM 100 MG CAPSULE PO (07:11)
[2025-04-20] MEDS: MULTIVIT/MIN/PREN/FOL AC/IRON TABLET 1 TAB PO (07:11)
[2025-04-20] MEDS: MEASLES,MUMPS,RUBELLA VACCINE 0.5 ML VIAL SUB-Q (07:14)
--- NOTE | 2025-04-20 07:25 | P.PNOB_ITS ---
OB - PN: Subj Subjective Date/time seen: 04/20/25 07:25 Interval history: Has hemorrhoid pain, using Tucks pads. Patient comments: pain well controlled, tolerating diet and other (Decreasing lochia.) OB - PN: Obj Data Labs 04/20/25 04:11 Labs: Laboratory Results - last 24 hr 04/20/25 04:11 Hgb 11.2 L Hct 34.4 L OB - PN A/P Plan day: 1 Plan: routine care Comments: Patient doing well. She request discharge to home today. Discharge precautions given. Time Spent With Patient Time: Total time spent is greater than 50% in coordination of care (as documented) at patient's floor/unit and/or counseling patient: Exam 2 Psych: Other: Abd: fundus firm below umbilicus, nontender Perineum: hemorrhoids present, nonthrombosed Ext: nontender
[2025-04-20 07:45] VITALS: BP 107/62; PULSE 72; RESP 18; TEMP 36.8; O2SAT 96
[2025-04-20 07:55] VITALS: PULSE 81; RESP 16; O2SAT 98
--- NOTE | 2025-04-20 10:57 | PC.NURSE ---
0900.Patient viewed the discharge video Mother & Baby Care, The First Two Weeks. Patient was given the opportunity and encouraged to ask questions. Patient verbalized understanding of information shared and has been given the mother/baby guide for home reference.
[2025-04-23 11:24] VITALS: BP 104/73; PULSE 79; RESP 18; TEMP 36.9; O2SAT 100
== END 2025-04-20 11:07 | disposition home or self-care (01) | DRG 807 ==
LOC: ANHLDR 13:48 → ANHOB2 04-19 05:03
PROVIDERS: Admitting Provider Student in an Organized Health Care Education/Training Program; Visit Provider Student in an Organized Health Care Education/Training Program
DX: O99.824 Streptococcus B carrier state complicating childbirth (principal); Z37.0 Single live birth; Z3A.39 39 weeks gestation of pregnancy; O70.1 Second degree perineal laceration during delivery
CPT/HCPCS: 36415; 85014; 85018; 85025; 86593; 86762; 86850; 86900; 86901; 87340; 90710; A9270; J0290; J2371; J2590; J2795; J7120

== ENCOUNTER 2025-07-16 19:19 | Emergency (ER) | payer BC, OTHER, SELFPAY ==
--- NOTE | 2025-07-16 19:21 | ED.URI ---
HPI - URI/Sore Throat General Chief Complaint: Upper Respiratory Infection Stated Complaint: Sore Throat/Cough Source: patient and RN notes reviewed Mode of arrival: ambulatory Limitations: no limitations History of Present Illness HPI Narrative: Patient is a 29-year-old female who presents to the [facility] with multiple complaints. Patient states that she developed sinus congestion and drainage approximately 2 weeks ago. This symptom has been ongoing. She states over the last few days she developed a sore throat and frequent nonproductive cough. She denies recent fevers. Patient states that her 2 sons were also sick with similar symptoms but they were able to have their symptoms resolved while hers have continued. Patient states that she also noted a rash to bilateral hands between fingers today. The rash is itchy. Patient states that she stayed in a dirty hotel over the weekend in [place]. Related Data Home Medications ?Medication ?Instructions ?Recorded ?Confirmed ?Last Taken ?Type lamotrigine 100 mg tablet 100 mg PO DAILY 02/07/25 05/24/25 04/18/25 History Allergies Allergy/AdvReac Type Severity Reaction Status Date / Time divalproex sodium (From AdvReac Severe Other Verified 07/16/25 19:21 Depakote) Review of Systems Review of Systems: CONSTITUTIONAL: Denies fever, chills, or sweats. EYES: Denies visual changes, redness, or discharge. ENT: Denies otalgia but reports sore throat CARDIOVASCULAR: Denies chest pain, palpitations, or edema. RESPIRATORY: Reports cough but denies dyspnea. GASTROINTESTINAL: Denies abdominal pain, nausea, vomiting, or diarrhea. GENITOURINARY: Denies dysuria or hematuria. SKIN: Reports rash and itching. MUSCULOSKELETAL: Denies back pain, joint pain, or myalgia. NEUROLOGIC: Denies headache, numbness, or weakness. Pertinent positives per HPI. [facility] Past Medical History Medical History Personality disorder Depression Amenorrhea, primary Gestational diabetes Asthma Bipolar disorder Surgical History Surgical History History of hysteroscopy suction D&C missed AB Family History Family History Father Diabetes mellitus Social History Social History Smoking status: Never smoker Second hand tobacco smoke exposure: No Alcohol intake: never Substance use: never Substance use type: does not use Do You Feel Safe in your Home?: Yes Lack of Transportation: No Lack of Food: Never True Current Housing: I Have Housing Concerned About Future Housing: No Difficulty Paying Gas/Electric Bills: No Difficulty Paying for Meds: No Currently Unemployed: No Education: Bachelor's Degree Difficulty w/ Childcare or Family Care: No Living arrangements: with family Additional living arrangements comments: Occupation/Education: occupation 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 There is no relevant family history pertinent to the patient complaint. Exam Narrative: GENERAL: This is a well-nourished, well-developed patient, in no apparent distress. HEAD: normocephalic, atraumatic. EYES: Sclera clear/white. Vision is grossly intact. EARS: External ears normal. Hearing grossly intact. NOSE: External nose normal with no obvious nasal discharge, nares without redness, no rhinorrhea. THROAT: Mucous membranes moist, oropharyngeal erythema without exudate. NECK: Neck supple, non-tender without lymphadenopathy, masses or thyromegaly. CARDIOVASCULAR: Regular rate and rhythm without murmurs, gallops, or rubs. RESPIRATORY: Clear to auscultation. Breath sounds equal bilaterally. No wheezes, rales, or rhonchi. GASTROINTESTINAL: Abdomen soft, non-tender, nondistended. Bowel sounds are active. No hepato-splenomegaly, or palpable masses. No guarding. SKIN: Small, red bumps with some crusting to bilateral hands. Thin, winding tracks of erythematous papules (small red bumps) and urticated lesions, consistent with scabies NEURO: awake, alert, and oriented to person, place and time. There were no obvious focal neurologic abnormalities. Course Course Level of Care: Express Care Visit Vital Signs Vital signs: Vital Signs Temperature 98.3 F 07/16/25 19:22 Pulse Rate 105 H 07/16/25 19:22 Respiratory Rate 16 07/16/25 19:22 Blood Pressure 99/57 L 07/16/25 19:22 Pulse Oximetry 97 07/16/25 19:22 Oxygen Delivery Room Air 07/16/25 19:22 Temperature 98.3 F 07/16/25 19:22 Pulse Rate 105 H 07/16/25 19:22 Respiratory Rate 16 07/16/25 19:22 Blood Pressure 99/57 L 07/16/25 19:22 Pulse Oximetry 97 07/16/25 19:22 Oxygen Delivery Room Air 07/16/25 19:22 Reviewed MDM - URI/Sore Throat MDM Narrative Medical decision making narrative: Go to the ER for any new or worsening symptoms. Avoid smoking/second-hand smoke. Continue to take Tylenol or Motrin for pain. Increase your Vitamin C intake. Use a humidifier or vaporizer at night. Take Medications as prescribed. Drink plenty of water. 8-10 glasses per day. Use flonase 2 times per day for 5 days then as needed Take mucinex 2 times per day and be sure to take with 8oz of water. Follow up with Primary provider if not getting better. Apply to all areas of the skin from the neck to the feet, then washed off in a shower or bath after 8 to 14 hours. You to repeat the treatment after one week; if itchy still persist. Use the cream as directed; best use at night time when you go to bed. When you start treatment, wash all the clothes you and others in your home wore in the last 4 to 5 days in hot water. Then dry them in a dryer on high heat. You should also wash any bedclothes (sheets and blankets) or towels people in your home have touched.Dry-cleaning will also get rid of the scabies mite. Any bedding, clothing, or towels that you cannot wash or dry-clean should be placed in a sealed plastic bag for at least 3 days. Scabies mites usually without contact with human skin after a few days. You may take antihistamine such as Benadryl/Zyrtec or Claritin to reduce itchiness. Please schedule a followup visit with your personal physician for further evaluation and treatment within 3-5days. If your symptoms persist, change or worsen significantly before you can contact your personal physician then please, without delay, go to the emergency department for further evaluation. Differential Diagnosis Differential diagnosis: Likely upper respiratory infection, viral infection, pharyngitis and other (strep, HFM, scabies) Lab Data Attestation: I reviewed the patient's lab results. Labs: Lab Results 07/16/25 Range/Units 19:28 POC Grp A Strep Screen Negative (Negative) Critical Care Time Critical Care Time Critical Care Time: No Discharge Plan Discharge Clinical Impression: Sinusitis, Scabies Patient Disposition: Home Condition: Stable Instructions: Antibiotic Form, Sinusitis (ED), Scabies (ED) Additional Instructions: Go to the ER for any new or worsening symptoms. Avoid smoking/second-hand smoke. Continue to take Tylenol or Motrin for pain. Increase your Vitamin C intake. Use a humidifier or vaporizer at night. Take Medications as prescribed. Drink plenty of water. 8-10 glasses per day. Use flonase 2 times per day for 5 days then as needed Take mucinex 2 times per day and be sure to take with 8oz of water. Follow up with Primary provider if not getting better. Apply to all areas of the skin from the neck to the feet, then washed off in a shower or bath after 8 to 14 hours. You to repeat the treatment after one week; if itchy still persist. Use the cream as directed; best use at night time when you go to bed. When you start treatment, wash all the clothes you and others in your home wore in the last 4 to 5 days in hot water. Then dry them in a dryer on high heat. You should also wash any bedclothes (sheets and blankets) or towels people in your home have touched.Dry-cleaning will also get rid of the scabies mite. Any bedding, clothing, or towels that you cannot wash or dry-clean should be placed in a sealed plastic bag for at least 3 days. Scabies mites usually without contact with human skin after a few days. You may take antihistamine such as Benadryl/Zyrtec or Claritin to reduce itchiness. Please schedule a followup visit with your personal physician for further evaluation and treatment within 3-5days. If your symptoms persist, change or worsen significantly before you can contact your personal physician then please, without delay, go to the emergency department for further evaluation. Patient Language: Hebrew Prescriptions: New amoxicillin-pot clavulanate 875-125 mg tablet 1 tablet PO Q12H 10 Days Qty: 20 0RF permethrin 5 % cream 1 applic topical Q14D Qty: 60 0RF Rx Instructions: apply second treatment 14 days after first treatment if live lice remain No Action lamotrigine 100 mg tablet 100 mg PO DAILY Follow-up/Referrals: PHYSICIAN,CUSTOM HOME INSTALLER [Primary Care Provider, Internal Medicine] Time of Disposition: 19:43
[2025-07-16 19:22] VITALS: BP 99/57; PULSE 105; RESP 16; TEMP 36.8; O2SAT 97
[2025-07-16 19:39] LABS: EDSTREPNEGPOS1 Negative (Negative)
== END 2025-07-16 19:53 | disposition home or self-care (01) ==
PROVIDERS: Emergency Provider Nurse Practitioner
DX: J32.9 Chronic sinusitis, unspecified (principal); B86 Scabies; J45.909 Unspecified asthma, uncomplicated; F31.9 Bipolar disorder, unspecified
CPT/HCPCS: 87081; 87880; 99213; G0463